=== PATIENT | female | born 1950 | race Caucasian/White ===

== ENCOUNTER 2020-12-31 14:12 | Inpatient (IN) | payer OTHER ==
[~2020-12-31] VITALS: Ht 157.5 cm; Wt 89.4 kg
--- NOTE | 2020-12-31 14:42 | REP ---
INDICATION: DYSPNEA/COUGH COMPARISON: None. TECHNIQUE: Portable AP view of the chest FINDINGS: Diffuse increased pulmonary vasculature and interstitial markings are noted bilaterally with scattered airspace disease, subtle opacities, bibasilar atelectasis, and small pleural effusions (right greater than left). No pneumothorax. Skeletal structures intact. Visualized portions of the cardiac silhouette suggest cardiomegaly with dual lead pacemaker and evidence for prior proximal aortic stenting. IMPRESSION: Findings described above suggest CHF versus multifocal pneumonia. <Electronically signed by Mark Miller > 12/31/20 [id number]
[2020-12-31] MEDS ORDERED: FUROSEMIDE 40MG/4ML VIAL (J1940) IV ONE (14:45)
[2020-12-31 14:53] LABS: BASO # 0.1 10^3/uL (0.0-0.2); BASO % 0.9 % (0.0-1.0); EOS # 0.1 10^3/uL (0.0-0.5); EOS % 0.9 % (0.0-3.0); HEMATOCRIT 32.7 % (36.0-47.0); HEMOGLOBIN 9.4 g/dl (12.0-15.5); LYMPH # 1.7 10^3/uL (1.5-5.0); MEAN CORPUSCULAR HEMOGLOBIN 24.9 pg (27.0-33.0); MEAN CORPUSCULAR HGB CONC 28.7 g/dl (32.0-36.5); MEAN CORPUSCULAR VOLUME 86.5 fl (80.0-96.0); MONO # 0.5 10^3/uL (0.0-0.8); MONO % 5.8 % (2.0-8.0); NEUTROPHILS # 6.3 10^3/uL (1.5-8.5); NEUTROPHILS % 72.4 % (36.0-66.0); PLATELET COUNT, AUTOMATED 401 10^3/uL (150-450); RED BLOOD COUNT 3.78 10^6/uL (4.00-5.40); WHITE BLOOD COUNT 8.7 10^3/uL (4.0-10.0)
[2020-12-31 15:03] LABS: INR 1.18; PROTHROMBIN TIME 15.3 SECONDS (12.5-14.3)
[2020-12-31 15:26] LABS: ALBUMIN 3.2 GM/DL (3.2-5.2); BILIRUBIN,DIRECT 0.7 MG/DL (0.0-0.2); BILIRUBIN,TOTAL 1.7 MG/DL (0.2-1.0); CALCIUM LEVEL 8.9 MG/DL (8.8-10.2); CREATININE FOR GFR 1.87 MG/DL (0.55-1.30); GLOMERULAR FILTRATION RATE 28.4 (>45); MB/CK RELATIVE INDEX 2.41 (< OR =4); POTASSIUM SERUM 3.6 MEQ/L (3.5-5.1); THYROID STIMULATING HORMONE 3.8 uIU/ML (0.358-3.740); TOTAL PROTEIN 6.9 GM/DL (6.4-8.2); TROPONIN I 0.04 NG/ML (< 0.10)
[2020-12-31] MEDS ORDERED: D31000TA2 PO (15:54)
[2020-12-31] MEDS ORDERED: LANTINJ4 SQ (15:54)
[2020-12-31] MEDS ORDERED: FURO40TA2 PO (15:54)
[2020-12-31] MEDS ORDERED: CLOP75TA2 PO (15:54)
[2020-12-31] MEDS ORDERED: ATOR1TAB21 PO (15:54)
[2020-12-31] MEDS ORDERED: DEXTROSE 50% 50 ML SYRINGE IV PRN (16:15)
[2020-12-31] MEDS ORDERED: GLUCAGON INJ 1MG VIAL SC PRN (16:15)
[2020-12-31] MEDS ORDERED: GLUCOSE 4GM CHEW TABLET PO PRN (16:15)
[2020-12-31] MEDS ORDERED: cefTRIAXone SOD 2 GM in D5W MINI-BAG PLUS 50 ML IV ONE (16:20)
[2020-12-31] MEDS ORDERED: LevoFLOXacin IV 500 MG in IV 1 EA IV ONE (17:05)
--- NOTE | 2020-12-31 17:41 | HPEPDOC ---
[facility] Medical History & Physical Date of Admission December 31, 2020 Date of Service: December 31, 2020 Attending Physician: Savanah Joyner MD History and Physical CHIEF COMPLAINT: Increased shortness of breath HISTORY OF PRESENT ILLNESS: Patient is a 70-year-old female with PMH of CAD status post stent placement, DM type II, aortic valve replacement secondary to AV stenosis, history of hypertension, history of rectal cancer status post rectal surgery, history of kidney cancer status post nephrectomy 10/04/20, CHF (type unknown), ? FADI, bowel incontinence 2/2 to rectal surgery, history of atrial fibrillation not on anticoagulation due to recent GI bleed, hyperlipidemia who presented to [facility] emergency room with the chief complaint of increased shortness of breath suddenly today. 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 She complains of worsening lower extremity edema over the past several weeks for which her home Lasix was increased from 40 mg to 60 mg last week by her primary care provider. She's also been experiencing nocturnal dyspnea over the past several weeks along with the lower extremity swelling and worsening short of breath. She complains today of lightheadedness, dizziness, diaphoresis along with Herceptin onset of shortness of breath. She denies a cough, chest pain, fevers, chills, recent illnesses. She has a hospitalization from September of this year where she underwent right nephrectomy and rectal surgery. She follows with multiple specialists across [place] and [facility] including her primary care provider who is in [place], [place], manager mba in [place], [place], her urologist in [place], [place], CT surgeons in [place], [place]. She states she had heart failure secondary to chemotherapy and radiation which treated her kidney cancer. She has an unknown baseline for her creatinine. She does not follow with a defective cigarette slitter as outpatient. Due to worsening shortness of breath, the patient was brought to the emergency room for further evaluation. In route, EMS placed on CPAP due to increased lower extremity swelling and increased shortness of breath. Upon arrival to the emergency room, the patient was in respiratory distress, respiratory rate 3033, pulse [id number], temperature 95.5, blood pressure stable at 140/72. Chest x-ray showed CHF type pattern with questionable multifocal pneumonia. Lactic acid elevated at 4.9. The patient was given ceftriaxone and a dose of doxycycline for questionable sepsis 2/2 to PNA. The patient had elevated BNP 6719, pH on ABG 7.359, CO2 normal, PaO2 in the 70s. The patient was attempted to be taken off of CPAP but this did not help her respiratory distress. She was given 120 mg of IV Lasix with no urinary output. Oseguera catheter was placed. Case was discussed with both pulmonology and nephrology. The patient was ultimately admitted for acute hypoxic respiratory failure secondary to congestive heart failure with exacerbation requiring CPAP and hospitalization, r/o sepsis 2/2 to HCAP/CAP? REVIEW OF SYSTEMS: Neg except mentioned above PAST MEDICAL HISTORY: CAD status post stent placement, aortic valve replacement secondary to AV stenosis, history of hypertension, history of rectal cancer status post rectal s urgery, history of kidney cancer status post nephrectomy 10/04/20, CHF (type unknown), history of atrial fibrillation not on anticoagulation due to recent GI bleed, hyperlipidemia, ? FADI, bowel incontinence 2/2 to rectal surgery, DM type II PAST SURGICAL HISTORY: Pacemaker placement 10/2019 Cardiac stent placement x 3 Right nephrectomy 10/04/2020 AV valve replacement Rectal surgery to 10/04/2020 FAMILY HISTORY: Father: CAD, bladder/colon cancer. at 80 y/o Mother: CAD. at 70 y/o. SOCIAL HISTORY: Prior smoker 1 pack per day for 10 years. Quit in 1982. Denies alcohol or drug use. Follows with multiple specialists including her primary care provider in [place], [place]. Cardiology, urology, CT surgery. Patient is a full code. She is ALLERGIES: Please see below. HOME MEDICATIONS: Please see below. PHYSICAL EXAMINATION: VS: respiratory rate 3033, pulse [id number], temperature 95.5, blood pressure stable at 140/72 CONSTITUTIONAL: pale color, no acute respiratory distress, resting in bed, AAO x 3 EYES: PERRLA, EOM intact HENT, MOUTH: Normocephalic, atraumatic, moist mucous membranes, CPAP mask secured in place NECK: SUPPLE, no JVD, no lymphadenopathy, no carotid bruit CV: sinus tachycardia. S1S2 normal, no murmurs/rubs/gallops RESPIRATORY: Crackles in lower post lung bases, no rales/rhonchi/wheezes GI: BS positive in 4 quadrants, soft, nontender, nondistended, no rebound or guarding, no organomegaly : Deferred MUSCULOSKELETAL: Normal ROM. No cyanosis, clubbing, swelling, joint deformity, + 3pitting lower extremity edema INTEGUMENTARY: Intact, no rashes, no lesions, no erythema NEUROLOGIC: Cranial Nerves II-XII are intact, no focal deficits PSYCHIATRIC: Mood and affect are normal LABORATORY DATA: Please see below IMAGING: CXR: Findings described above suggest CHF versus multifocal pneumonia. ASSESSMENT: 70-year-old female with PMH of CAD status post stent placement, aortic valve replacement secondary to AV stenosis, history of hypertension, history of rectal cancer status post rectal surgery, history of kidney cancer status post nephrectomy 10/04/20, CHF (type unknown), ? FADI, bowel incontinence 2/2 to rectal surgery, history of atrial fibrillation not on anticoagulation due to recent GI bleed, hyperlipidemia admitted for acute hypoxic respiratory failure secondary to CHF with exacerbation requiring CPAP, r/o sepsis 2/2 to HCAP/CAP? PLAN: Acute hypoxic respiratory failure 2/2 to CHF with exacerbation, cannot r/o HCAP, CPAP -ABG above -Currently on CPAP, saturating 95% 45% FiO2 -More comfortable while on CPAP, has not diuresed despite high dose lasix administration -Discussed curbside with pulmonology, will keep on CPAP tonight until diuresis starts -PCU to watch closely, f/u treatment plans for individual issues below CHF with exacerbation, type unknown -Worsening SOB, lower ext edema despite incr lasix dose at home. -BNP >6K, trop x 1 neg- follow up next two sets -S/p daily lasix 60 mg at home, given 120 mg IV lasix in ER with no diuresis -Placing oseguera for critical monitoring, daily wts, 2 gm sodium diet, fluid restriction. -F/u new echocardiogram here -Not on BB, ACEi at home -Discussed case with nephrology here due to hx of nephrectomy, elevated Cr: Starting on lasix 80 mg IV Q6H, diuril 250 mg IV BID, oseguera catheter placed. -Nephrology consulted to help with diuresis -Follows with out of town manager mba, requested most recent records, including latest echo. ROXANNA on ? CKD Stage unknown -Cr 1.8, s/p nephrectomy 09/2020, baseline unknown -Does not follow with kidney specialist but with urologist -Nephrology consulted -Daily labs, monitoring while aggressively diuresing HCAP/CAP, sepsis? -LA elevated, tachycardia, RR incr, CXR: MF PNA -Denies cough, fevers, chills, COVID/resp panel neg -Started on levaquin IV, s/p ceftriaxone and doxy in ER -F/u procalcitonin, blood cultures, sputum culture if obtained CAD s/p stent placement / AV stenosis s/p replacement / PM placement -F/u cardiology records -C/w statin, Plavix, diuresis Hx of rectal cancer s/p rectal surgery 09/2020 -Now has bowel incontinence at times from this -Follow up o/p HLD -Statin ? FADI -Stated to have been told she had this but has not been officially dx with sleep study Kidney cancer s/p chemotherapy, radiation and right nephrectomy 09/2020 -Follows with oncologist in [facility] Hx of atrial fibrillation, chronic -Currently ventricularly paced on ECG, HR 108 -Not on BB or chronic AC due to recent GI bleed Hx of recent GI bleed 10/01 to [facility] -Requested most recent records from [facility] -TEDs, sequentials, avoiding AC DM type II -Resume insulin glargine BID, ISS, FS AC/HS -Consistent carb diet DVT px -Teds, SCD. AC CI. DISPOSITION: Admitted under PCU status with CPAP. Nephrology consulted. Did not officially consult pulmonology but discussed case with Dr. Coreas. Follow up multiple records from [place] and [facility]. Vital Signs Vital Signs Date Time Temp Pulse Resp B/P (MAP) Pulse Ox O2 Delivery O2 Flow Rate FiO2 12/31/20 14:50 111 30 140/74 (96) 95 NIPPV (BIPAP/CPAP) 45 12/31/20 14:15 95.5 Laboratory Data Labs 24H Laboratory Tests 2 12/31/20 14:32: POC pH (Misc Panel) 7.359, POC Base Excess (Misc Panel) -7.0L, POC Saturated Percent O2 (Misc) 94L, POC pO2 (Misc Panel) 74.0L, POC pCO2 (Misc Panel) 33.4L, POC HCO3 (Misc Panel) 18.8L, POC Total CO2 (Misc Panel) 20.0L 12/31/20 14:40: Immature Granulocyte % (Auto) 1.0, Neutrophils (%) (Auto) 72.4H, Lymphocytes (%) (Auto) 19.0L, Monocytes (%) (Auto) 5.8, Eosinophils (%) (Auto) 0.9, Basophils (%) (Auto) 0.9, Neutrophils # (Auto) 6.3, Lymphocytes # (Auto) 1.7, Monocytes # (Auto) 0.5, Eosinophils # (Auto) 0.1, Basophils # (Auto) 0.1, Nucleated Red Blood Cells % (auto) 0.0, Prothrombin Time 15.3H, Prothromb Time International Ratio 1.18, Anion Gap 13, Glomerular Filtration Rate 28.4L, Lactic Acid Level 4.9*H, Calcium Level 8.9, Total Bilirubin 1.7H, Direct Bilirubin 0.7H, Aspartate Amino Transf (AST/SGOT) 103H, Alanine Aminotransferase (ALT/SGPT) 63, Alkaline Phosphatase 163H, Total Creatine Kinase 83, Creatine Kinase MB 2.0, Creatine Ki nase MB Relative Index 2.41, Troponin I 0.04, QJ-Lim-D-Type Natriuretic Peptide 6719H, Total Protein 6.9, Albumin 3.2, Albumin/Globulin Ratio 0.9L, Thyroid Stimulating Hormone (TSH) 3.800H CBC/BMP Laboratory Tests 12/31/20 14:40 Microbiology Microbiology 12/31/20 Blood Culture, Received Pending 12/31/20 Respiratory Virus Panel (PCR) ([facility]) - Final, Complete 12/31/20 Blood Culture, Received Pending Home Medications Scheduled Atorvastatin Calcium (Atorvastatin Calcium) 20 Mg Tablet, 20 MG PO DAILY Cholecalciferol (Vitamin D3) (Vitamin D3) 1,000 Unit Tablet, 1,000 UNITS PO DAILY Clopidogrel Bisulfate (Clopidogrel) 75 Mg Tablet, 75 MG PO DAILY Furosemide (Furosemide) 40 Mg Tablet, 60 MG PO DAILY Insulin Glargine,Hum.rec.anlog (Lantus Solostar) 100 Unit/1 Ml Insuln.pen, 16 UNITS SQ BID Allergies Coded Allergies: Contrast Media (Verified Allergy, Mild, ITCHING/AGITATION/SKIN CRAWLING, 12/31/20) A-FIB/CHADSVASC A-FIB History Current/History of A-Fib/PAF?: Yes Current PO Anticoag Therapy: No Age/Risk Factor Scoring CHADSVASC: CHADSVASC Response (Comments) Value Age Risk Factor Age 65-74 years old 1 Gender Risk Factor Female 1 Hx of CHF Yes 1 Hx of HTN Yes 1 Hx of Stroke/TIA/or VTE No 0 Hx of Diabetes Yes 1 Hx of Vascular Disease No 0 Total 5 Treatment Treatment ordered: NONE Other anticoagulant ordered: hx of GI bleed Reason Anticoagulant not given: Other Other reason anticoagulant not: CI Savanah Joyner MD December 31, 2020 17:41
--- NOTE | 2020-12-31 17:54 | ECGEPIP ---
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
[2020-12-31] MEDS ORDERED: LevoFLOXacin IV 750 MG in IV 1 EA IV SCH (18:00)
[2020-12-31] MEDS: HumaLOG INSULIN (NovoLOG) PER UNIT SC SCH ×2 (19:04→21:00)
[2020-12-31] MEDS: FUROSEMIDE 100MG/10ML VIAL (J1940) IV SCH ×2 (19:05→23:18)
[2020-12-31] MEDS: ATORVASTATIN 20 MG TAB PO SCH (19:36)
[2020-12-31] MEDS ORDERED: HEPARIN SOD (PORCINE) 5000UNITS/ML 1ML VIAL/SYRINGE SQ SCH (21:00)
[2020-12-31] MEDS: CHLOROTHIAZIDE 500 MG VIAL (J1205 PER 1) IV SCH (21:28)
[2020-12-31 21:30] VITALS: BP 111/59
[2020-12-31 22:02] VITALS: BP 98/55
[2020-12-31] MEDS: LEVEMIR (INSULIN DETEMIR) 1 UNITS/0.01ML SQ SCH (22:06)
[2020-12-31] MEDS ORDERED: POTASSIUM CHLORIDE 10 MEQ SR TABLET PO ONE (22:25)
[2021-01-01] VITALS (15 sets, daily range): BP systolic 92–118; BP diastolic 51–60
[2021-01-01] MEDS ORDERED: ACETAMINOPHEN TAB 650MG DOSE (2X325MG) PO PRN (02:40)
[2021-01-01 06:12] LABS: HEMATOCRIT 26.3 % (36.0-47.0); HEMOGLOBIN 7.6 g/dl (12.0-15.5); MEAN CORPUSCULAR HEMOGLOBIN 24.7 pg (27.0-33.0); MEAN CORPUSCULAR HGB CONC 28.9 g/dl (32.0-36.5); MEAN CORPUSCULAR VOLUME 85.4 fl (80.0-96.0); RED BLOOD COUNT 3.08 10^6/uL (4.00-5.40); WHITE BLOOD COUNT 6.4 10^3/uL (4.0-10.0)
[2021-01-01 06:13] LABS: PLATELET COUNT, AUTOMATED 274 10^3/uL (150-450)
[2021-01-01] MEDS: FUROSEMIDE 100MG/10ML VIAL (J1940) IV SCH ×2 (06:20→13:08)
[2021-01-01] MEDS: CHLOROTHIAZIDE 500 MG VIAL (J1205 PER 1) IV SCH (06:21)
[2021-01-01 06:22] LABS: ALBUMIN 2.9 GM/DL (3.2-5.2); BILIRUBIN,TOTAL 0.9 MG/DL (0.2-1.0); CREATININE FOR GFR 1.54 MG/DL (0.55-1.30); GLOMERULAR FILTRATION RATE 35.6 (>45); POTASSIUM SERUM 3.5 MEQ/L (3.5-5.1); TOTAL PROTEIN 5.6 GM/DL (6.4-8.2)
[2021-01-01] MEDS: HumaLOG INSULIN (NovoLOG) PER UNIT SC SCH ×4 (07:30→21:00)
--- NOTE | 2021-01-01 07:40 | REP ---
INDICATION: solitary kidney, ROXANNA/CKD COMPARISON: None TECHNIQUE: Real time carrion scale ultrasound examination using curved array transducer. FINDINGS: Patient is noted to be status post right nephrectomy and the right renal fossa appears normal. The left kidney is normal in appearance without hydronephrosis, nephrolithiasis, cystic or renal mass lesion and measures 10.5 x 5.9 x 6.4 cm. IMPRESSION: 1. Status post right nephrectomy. 2. Normal left kidney. <Electronically signed by Mark Miller > 01/01/21 [id number]
[2021-01-01 08:19] LABS: TROPONIN I 0.32 NG/ML (< 0.10)
[2021-01-01] MEDS: LEVEMIR (INSULIN DETEMIR) 1 UNITS/0.01ML SQ SCH ×2 (08:23→21:00)
[2021-01-01] MEDS: CLOPIDOGREL 75 MG TAB PO SCH (08:28)
[2021-01-01] MEDS: VITAMIN D 1,000 INTERNATIONAL UNITS TABLET PO SCH (08:28)
[2021-01-01] MEDS: ATORVASTATIN 20 MG TAB PO SCH (08:29)
[2021-01-01 08:38] LABS: MAGNESIUM LEVEL 2.5 MG/DL (1.8-2.4); PHOSPHORUS LEVEL 4.1 MG/DL (2.5-4.9)
[2021-01-01] MEDS ORDERED: LevoFLOXacin IV 250 MG in IV 1 EA IV SCH (09:00)
[2021-01-01] MEDS ORDERED: POTASSIUM CHLORIDE 10 MEQ SR TABLET PO ONE ×2 (10:50→17:35)
--- NOTE | 2021-01-01 12:47 | REP ---
INDICATION: pleural effusions. COMPARISON: Comparison is made with yesterday's chest x-ray.. TECHNIQUE: Helical scanning is acquired. 3 mm axial images are generated. Coronal and sagittal MPR and coronal MIP images are generated. FINDINGS: Digital preliminary line up worker radiograph demonstrates cardiomegaly, and aortic valve replacement, bipolar pacemaker, and pleural angle blunting bilaterally. Axial CT images confirm the presence of small bilateral pleural effusions layering posteriorly. There is a very small amount of pericardial fluid. Four-chamber cardiomegaly is observed. Mitral annular calcification pacemaker and aortic valve replacement are noted. On lung window settings, there is diffuse increase in alveolar density consistent with CHF mild alveolar edema. There is discoid atelectasis in both lower lobes and in the right middle lobe. No hilar or mediastinal mass or adenopathy is observed. Visualized upper abdominal structures are unremarkable. IMPRESSION: CHF pattern with bilateral pleural effusions and four-chamber cardiomegaly. Pacemaker and aortic valve replacement. Mild alveolar edema pattern. Bibasilar atelectatic changes. <Electronically signed by Griffin Montana > 01/01/21 [id number]
[2021-01-01 12:52] LABS: TROPONIN I 0.24 NG/ML (< 0.10)
--- NOTE | 2021-01-01 14:22 | IPNPDOC ---
Date Seen The patient was seen on 01/01/21. Progress Note SUBJECTIVE: Off CPAP, transitioned to 4 L NC. Troponins bumped to 0.55, trending down today. Echocardiogram: small pericardial effusion. CT chest: small b/l pleural effusion. ECG: ventricular paced rhythm. Discussed with cardiology. Patient denies chest pain, diaphoresis, n/v/d, fevers, chills. OBJECTIVE: PHYSICAL EXAMINATION: VS: Please see below. CONSTITUTIONAL: pale color, no acute respiratory distress, resting in bed, AAO x 3 EYES: PERRLA, EOM intact HENT, MOUTH: Normocephalic, atraumatic, moist mucous membranes, CPAP mask secured in place NECK: SUPPLE, no JVD, no lymphadenopathy, no carotid bruit CV: sinus tachycardia. S1S2 normal, no murmurs/rubs/gallops RESPIRATORY: Crackles in lower post lung bases, no rales/rhonchi/wheezes GI: BS positive in 4 quadrants, soft, nontender, nondistended, no rebound or guarding, no organomegaly : Deferred MUSCULOSKELETAL: Normal ROM. No cyanosis, clubbing, swelling, joint deformity, + 3pitting lower extremity edema INTEGUMENTARY: Intact, no rashes, no lesions, no erythema NEUROLOGIC: Cranial Nerves II-XII are intact, no focal deficits PSYCHIATRIC: Mood and affect are normal LABORATORY DATA: Please see below IMAGING: Echocardiogram (prelim reading): small pericardial effusion, pleural effusion, MRPatricia F/U OFFICIAL TRANSCRIBED REPORT CT chest: CHF pattern with bilateral pleural effusions and four-chamber cardiomegaly. Pacemaker and aortic valve replacement. Mild alveolar edema pattern. Bibasilar atelectatic changes. CXR: Findings described above suggest CHF versus multifocal pneumonia. ASSESSMENT: 70-year-old female with PMH of CAD status post stent placement, aortic valve replacement secondary to AV stenosis, history of hypertension, history of rectal cancer status post rectal surgery, history of kidney cancer status post nephrectomy 10/04/20, CHF (type unknown), ? FADI, bowel incontinence 2/2 to rectal surgery, history of atrial fibrillation not on anticoagulation due to recent GI bleed, hyperlipidemia admitted for acute hypoxic respiratory failure secondary to CHF with exacerbation requiring CPAP, r/o sepsis 2/2 to HCAP/CAP? PLAN: Acute hypoxic respiratory failure 2/2 to CHF with exacerbation, pleural effusions -Was on CPAP most of 12/31/20, currently saturating well on 4 L NC. Not on home O2 -Low suspicion for HCAP/CAP with low procalcitonin and CT chest not naming pneumonia. ABx stopped -PCU to watch closely, f/u treatment plans for individual issues below Elevated troponins likely 2/2 to ischemic demand, renal dysfunction, CHF -Trop peaked at 0.55, down to 0.23 this afternoon -Denies any chest pain, no events on tele, ECG showed to be ventricularly paced- similar to one on admission -C/w current treatment below, f/u cardiology records. CHF with exacerbation, type unknown with bilateral pleural effusions -Net neg 6.0 L since admission, improved SOB and LE edema b/l -CT chest above -BNP >6K -Trops elevated overnight; however, likely 2/2 to ischemic demand and perhaps r enal dysfunction per cards -Echocardiogram: official report pending, prelim results above -Not on BB, ACEi at home -C/w lasix 80 mg IV Q6H, diuril 250 mg IV BID, oseguera catheter for monitoring. Added IS Q2H while awake -Nephrology consulted to help with diuresis -Follows with out of town service associate, requested most recent records, including latest echo. ROXANNA on ? CKD Stage unknown -Cr 1.8--> 1.54, s/p nephrectomy 09/2020, baseline Cr unknown -Cr improving despite aggressive diuresis -Does not follow with kidney specialist but with urologist -Nephrology following -Daily labs, monitoring while aggressively diuresing Anemia likely acute on chronic (baseline not known), r/o GI bleed -Hx of recent GI bleed 10/01 to [facility] with records from [facility] requested. -has not been on AC this admission at all. -H/H dropped 7.6/26.3 -F/u occult blood, anemia w/u -With cardiac history, tranfusing 2 units PRBC today. -TEDs, sequentials, avoiding AC CAD s/p stent placement / AV stenosis s/p replacement / PM placement -F/u cardiology records -C/w statin, Plavix, diuresis Hx of rectal cancer s/p rectal surgery 09/2020 -Now has bowel incontinence at times from this -Follow up o/p HLD -Statin ? FADI -Stated to have been told she had this but has not been officially dx with sleep study Kidney cancer s/p chemotherapy, radiation and right nephrectomy 09/2020 -Follows with oncologist in [facility] Hx of atrial fibrillation, chronic -Currently ventricularly paced on ECG, HR 108 -Not on BB or chronic AC due to recent GI bleed DM type II -BS controlled - insulin glargine BID, ISS, FS AC/HS -Consistent carb diet DVT px -Teds, SCD. AC CI. DISPOSITION: Improving slowly. Nephrology consulted. Follow up multiple records from [facility] and [facility]. PT/OT VS, I&O, 24H, Fishbone Vital Signs/I&O Vital Signs Date Time Temp Pulse Resp B/P (MAP) Pulse Ox O2 Delivery O2 Flow Rate FiO2 01/01/21 12:00 97.1 95 18 118/60 (79) 99 Nasal Cannula 2.0 12/31/20 20:28 45 I&O- Last 24 Hours up to 6 AM 01/01/21 06:00 Intake Total 65 ml Output Total 4700 ml Balance -4635 ml Laboratory Data 24H LABS Laboratory Tests 2 12/31/20 14:32: POC pH (Misc Panel) 7.359, POC Base Excess (Misc Panel) -7.0L, POC Saturated Percent O2 (Misc) 94L, POC pO2 (Misc Panel) 74.0L, POC pCO2 (Misc Panel) 33.4L, POC HCO3 (Misc Panel) 18.8L, POC Total CO2 (Misc Panel) 20.0L 12/31/20 14:40: Immature Granulocyte % (Auto) 1.0, Neutrophils (%) (Auto) 72.4H, Lymphocytes (%) (Auto) 19.0L, Monocytes (%) (Auto) 5.8, Eosinophils (%) (Auto) 0.9, Basophils (%) (Auto) 0.9, Neutrophils # (Auto) 6.3, Lymphocytes # (Auto) 1.7, Monocytes # (Auto) 0.5, Eosinophils # (Auto) 0.1, Basophils # (Auto) 0.1, Nucleated Red Blood Cells % (auto) 0.0, Prothrombin Time 15.3H, Prothromb Time International Ratio 1.18, Anion Gap 13, Glomerular Filtration Rate 28.4L, Lactic Acid Level 4.9*H, Calcium Level 8.9, Total Bilirubin 1.7H, Direct Bilirubin 0.7H, Aspartate Amino Transf (AST/SGOT) 103H, Alanine Aminotransferase (ALT/SGPT) 63, Alkaline Phosphatase 163H, Total Creatine Kinase 83, Creatine Kinase MB 2.0, Creatine Kinase MB Relative Index 2.41, Troponin I 0.04, ZJ-Ibz-V-Type Natriuretic Peptide 6719H, Total Protein 6.9, Albumin 3.2, Albumin/Globulin Ratio 0.9L, Thyroid Stimulating Hormone (TSH) 3.800H 12/31/20 18:03: Troponin I 0.31#H, Procalcitonin 0.13 12/31/20 18:53: Bedside Glucose (Misc Panel) 128H 12/31/20 22:00: Bedside Glucose (Misc Panel) 197H 12/31/20 22:05: Troponin I 0.55#H 01/01/21 05:33: Nucleated Red Blood Cells % (auto) 0.0, Anion Gap 7L, Glomerular Filtration Rate 35.6L, Calcium Level 9.0, Total Bilirubin 0.9, Aspartate Amino Transf (AST/SGOT) 41H, Alanine Aminotransferase (ALT/SGPT) 45, Alkaline Phosphatase 121H, Total Protein 5.6L, Albumin 2.9L, Albumin/Globulin Ratio 1.1L 01/01/21 07:40: Troponin I 0.32#H, Lactic Acid Level 1.6, Phosphorus Level 4.1, Magnesium Level 2.5H 01/01/21 11:16: Bedside Glucose (Misc Panel) 135H 01/01/21 12:00: Troponin I 0.24#H CBC/BMP Laboratory Tests 12/31/20 14:40 01/01/21 05:33 Microbiology Microbiology 12/31/20 Blood Culture, Received Pending 12/31/20 Respiratory Virus Panel (PCR) ([facility]) - Final, Complete 12/31/20 Blood Culture, Received Pending Savanah Joyner MD January 01, 2021 14:22
[2021-01-01 15:13] LABS: PERCENT SATURATION 7.1 % (13.2-45.0)
[2021-01-01] MEDS ORDERED: ASPI81CH33 PO (15:58)
[2021-01-01 23:08] LABS: HEMATOCRIT 34.7 % (36.0-47.0); HEMOGLOBIN 10.5 g/dl (12.0-15.5)
[2021-01-02] VITALS: BP 108/56
[2021-01-02 04:00] VITALS: BP 100/53
[2021-01-02 06:07] LABS: HEMATOCRIT 33.5 % (36.0-47.0); HEMOGLOBIN 10.1 g/dl (12.0-15.5); MEAN CORPUSCULAR HEMOGLOBIN 25.4 pg (27.0-33.0); MEAN CORPUSCULAR HGB CONC 30.1 g/dl (32.0-36.5); MEAN CORPUSCULAR VOLUME 84.4 fl (80.0-96.0); PLATELET COUNT, AUTOMATED 272 10^3/uL (150-450); RED BLOOD COUNT 3.97 10^6/uL (4.00-5.40); WHITE BLOOD COUNT 6.9 10^3/uL (4.0-10.0)
[2021-01-02 06:26] LABS: CALCIUM LEVEL 8.7 MG/DL (8.8-10.2); CREATININE FOR GFR 1.51 MG/DL (0.55-1.30); GLOMERULAR FILTRATION RATE 36.4 (>45); POTASSIUM SERUM 4.1 MEQ/L (3.5-5.1)
[2021-01-02 06:27] LABS: ALBUMIN 2.9 GM/DL (3.2-5.2); BILIRUBIN,TOTAL 1.2 MG/DL (0.2-1.0); TOTAL PROTEIN 5.7 GM/DL (6.4-8.2)
--- NOTE | 2021-01-02 07:15 | CR ---
CONSULTATION DATE: 01/01/2021 REQUESTING PHYSICIAN: JONI SHEPARD MD CONSULTING PHYSICIAN: DAVE SEXTON DO REASON FOR CONSULTATION: Management of diuretic administration in this patient with CKD, solitary kidney, congestive heart failure. HISTORY OF PRESENT ILLNESS: Ms. Vivi Dick is previously unknown to me. She is a 70-year-old female who has come to [facility] for her very first visit here. She has a past medical history of significant heart disease including coronary artery disease status post stenting, aortic valve replacement with a history of aortic valve stenosis, atrial fibrillation not on anticoagulation (due to recent GI bleed) and also history of rectal cancer status post rectal surgery and history of renal cancer status post right nephrectomy in September 2020. The patient reports a history of congestive heart failure and follows up with cardiology and also reports follow-up with urology but does not see a material manager. Her other past medical history is listed below. The patient does not know her baseline renal function since she has solitary functioning left kidney. She states that her diuretic is managed by her primary care, Dr. Del Cid in [place], [place]. Patient states that she was on Lasix 40 mg daily, however over the past couple of weeks she has had increasing leg edema and has become progressively more short of breath and she also reported worsening dyspnea with exertion along with nocturnal dyspnea. She contacted her primary care provider who increased her Lasix from 40 mg daily to 60 mg daily. However, the patient had no relief in her symptoms. She was coming to [place] to see her professional system administrator and she decided not to take her Lasix in view of travel and not wanting to have to use the bathroom. However, she developed sudden increased shortness of breath and ended up in the Emergency Room instead. In the Emergency Room, the patient was noted to be in respiratory distress, tachycardic and hypoxic. She was placed on a CPAP. Chest x-ray showed a CHF pattern. Patient was noted to have lactic acidosis as well. Laboratory studies revealed a BNP of 6700. The Hospitalist contacted me yesterday evening and discussed the case and I advised that the patient be started on Lasix 80 mg IV q. 6 hourly along with Diuril 250 mg IV q. 12 hourly. The patient has had vigorous diuresis overnight and has already made 6 liters of urine in about a 12 hour period and she reports significant improvement in her shortness of breath and her leg swelling, and laboratory studies also reveal improving kidney function. PAST MEDICAL HISTORY: 1. Solitary functioning left kidney. Baseline creatinine unknown. 2. Chronic kidney disease. 3. Coronary artery disease status post stenting. 4. Aortic valve replacement secondary to aortic valve stenosis. 5. Hypertension. 6. Atrial fibrillation. 7. Recurrent anemia. 8. GI bleed. 9. Rectal cancer status post rectal surgery. 10.History of renal cancer status post right nephrectomy. 11.Congestive heart failure. 12.Iron deficiency. 13.Atrial fibrillation. 14.Dyslipidemia. 15.Questionable sleep apnea. 16.Type 2 diabetes mellitus. 17.Bowel incontinence. PAST SURGICAL HISTORY: Pacemaker placement, coronary stent x3, right nephrectomy in September 2020, aortic valve replacement, rectal surgery in September 2020. FAMILY HISTORY: Father with coronary artery disease and bladder and colon cancer. Mother with coronary artery disease. SOCIAL HISTORY: She is an ex-smoker, quit in 1982. Denies alcohol or drug use. She is and lives at home with . ALLERGIES: Contrast media. HOME MEDICATIONS: 1. Lipitor. 2. Vitamin D3. 3. Plavix. 4. Lasix 60 mg p.o. daily. 5. Insulin. REVIEW OF SYSTEMS: Constitutional: She reports no fevers or chills. She reports fatigue. Eyes: She denies visual changes or tearing. ENT: She denies rhinorrhea or epistaxis. Cardiac: She reports a history of leg swelling, dyspnea on exertion, coronary artery disease, congestive heart failure and aortic valve replacement, atrial fibrillation. Respiratory: She reports shortness of breath. She is an ex-smoker. She denies hemoptysis. Gastrointestinal: She reports a history of rectal cancer, rectal bleed. She denies nausea or vomiting. She reports bowel incontinence. Genitourinary: She denies any hematuria or dysuria. She has a history of solitary functioning kidney. Endocrine: She reports insulin dependent diabetes mellitus and obesity. Musculoskeletal: She denies any acute myalgias or arthralgias. She reports prominent leg swelling. Hematologic: She reports anemia and blood transfusions and she reports she has been discontinued off of anticoagulation due to bleed. Neurologic: She denies seizure or syncope. Psychiatric: She denies anxiety or depression. Skin: She denies any new rashes or ulcers. The remainder of review of systems is negative or as per HPI. PHYSICAL EXAMINATION: VITAL SIGNS: Temperature 98.7, pulse 87, respiratory rate 20, blood pressure 105/57, saturating 92 to 95% on room air. INTAKE AND OUTPUT: Intake yesterday was not fully recorded. Urine output yesterday was 2.2 liters, urine output today is already 6 liters, weight on the bed scale is 95.6 kg. GENERAL: The patient is seen sitting in a recliner with her legs elevated with her family members present at the bedside. She is awake, alert and oriented x3 and in no apparent distress. HEENT: Extraocular muscles are intact. There is conjunctival pallor. Tongue is moist. NECK: Supple. Jugular veins are not elevated while she is sitting upright. She is seen on nasal cannula at the time of my visit. HEART: Heart sounds are regular, S1 and S2. There is 2+ leg edema. The patient reports it is improved from earlier. RESPIRATORY: Symmetric air entry without crackles or rales. There are diminished breath sounds however at the bases. She is comfortable and speaking in full sentences without any accessory muscle use nor tachypnea. ABDOMEN: Soft, obese and nontender. GENITOURINARY: Indwelling Martell catheter draining clear yellow urine. EXTREMITIES: 2+ leg edema. NEUROLOGIC: She is oriented x3, interactive at baseline mentation. SKIN: Pallor but no rashes. LABORATORY DATA: Hemoglobin 7.6, platelets are 274,000, white count 6.4, sodium 142, potassium 3.5, bicarbonate 29, BUN 35, creatinine 1.8 yesterday on admission and 1.5 today. Lactic acid 4.9 yesterday on admission and 1.6 today. Magnesium 2.5, transferrin saturation 7%, iron 22, ferritin 46. Troponin 0.2, albumin 2.9. Microbiology: Stool occult blood pending. Blood cultures: No growth 24 hours x2 sets. IMAGING: CT of the chest done at 10 o'clock this morning: CHF pattern with bilateral pleural effusions and cardiomegaly, pacemaker and aortic valve replacement. Renal ultrasound done yesterday: Normal left kidney 10.5 cm. INPATIENT MEDICATIONS: Tylenol p.r.n., Levaquin 750 mg IV x1 dose, Lipitor 20 mg p.o. daily, Chlorthiazide 250 mg IV q. 12 hourly x2 doses, Plavix 75 mg p.o. daily, Lasix 80 mg IV q. 6 hourly x4 doses, insulin, potassium 40 mEq p.o. x3 doses, vitamin D 1000 units p.o. daily. PROBLEMS: 1. Acute on chronic congestive heart failure decompensation with fluid overload. Patient has a history of congestive heart failure but the type is unknown as it is her first admission at [facility]. Echocardiogram is pending. She was admitted with acute hypoxic respiratory failure, BNP of 6700 and lung imaging was consistent with CHF pattern and pleural effusions, and the patient had considerable edema on exam. She was diuresed with IV Lasix and Diuril. She has already made about 8 liters of urine within a day and a half and I am going to hold further diuretic this evening. 2. Acute hypoxic respiratory failure secondary to decompensated congestive heart failure. Patient was initially requiring CPAP, however at the time of my visit she was on nasal cannula and transitioning to room air. She has been vigorously diuresed. After the Hospitalist contacted me yesterday evening, I recommended Lasix along with Diuril and the patient has diuresed very well and I am going to hold diuretics now as she has already made 8 liters of urine in a day and a half. Her volume status is much improved and I expect she will be on room air by this evening. 3. CKD. Her baseline renal function is unknown. She is status post right nephrectomy in September 2020 and now has a solitary functioning left kidney. Her admission creatinine was 1.8 and after diuresis her creatinine today has come down to 1.5. We will see where her creatinine plateaus. She should follow-up with nephrology as an outpatient locally where she lives. Her renal imaging was negative for any sort of obstruction. 4. Anemia, patient reports a history of recurrent rectal bleeds and she reports she was recently transfused this year and she came in now with a hemoglobin that has dropped down to 7.6 despite diuresis and correction of hemodilution. She is getting 2 units of packed red blood cells today. I ordered iron stores which shows severe iron deficiency and I am going to give her Injectafer for correction of her iron deficiency. She reports she used to be on Eliquis for atrial fibrillation but it is held because of recurrent rectal bleeding. Thank you for involving me in the care of Ms. Dick, I would be happy to follow her along with you.
[2021-01-02] MEDS: HumaLOG INSULIN (NovoLOG) PER UNIT SC SCH ×4 (07:30→21:00)
[2021-01-02 07:40] VITALS: BP 106/58
[2021-01-02] MEDS: LEVEMIR (INSULIN DETEMIR) 1 UNITS/0.01ML SQ SCH ×2 (07:44→21:00)
[2021-01-02 08:07] LABS: TROPONIN I 0.15 NG/ML (< 0.10)
[2021-01-02] MEDS: VITAMIN D 1,000 INTERNATIONAL UNITS TABLET PO SCH (08:28)
[2021-01-02] MEDS: ATORVASTATIN 20 MG TAB PO SCH (08:28)
[2021-01-02] MEDS: CLOPIDOGREL 75 MG TAB PO SCH (08:28)
[2021-01-02 12:02] VITALS: BP 116/58
[2021-01-02] MEDS: FUROSEMIDE 100MG/10ML VIAL (J1940) IV SCH ×2 (12:54→21:11)
[2021-01-02] MEDS ORDERED: FERRIC CARBOXYMALTOSE INJ 750 MG, VIAL MATE ADAPTER 1 EACH in NS 250 ML IV ONE (16:00)
[2021-01-02] MEDS ORDERED: FERRIC CARBOXYMALTOSE INJ 750 MG in NS 250 ML IV ONE (16:00)
--- NOTE | 2021-01-02 16:45 | ECGEPIP ---
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 Slower rate and slightly different precordial lead placement but no significant c change from 12/31/20 Electronically Signed on 01-02-2021 16:45:23 EDT by Marty Sofia
--- NOTE | 2021-01-02 17:26 | IPNPDOC ---
Date Seen The patient was seen on 01/02/21. Progress Note SUBJECTIVE: On RA, diuresed > 7 L since admission. Cr and trop trending down. Patient denies chest pain, diaphoresis, n/v/d, fevers, chills. OBJECTIVE: PHYSICAL EXAMINATION: VS: Please see below. CONSTITUTIONAL: NAD, sitting up in chair, AAO x 3 EYES: PERRLA, EOM intact HENT, MOUTH: Normocephalic, atraumatic, moist mucous membranes NECK: SUPPLE, no JVD, no lymphadenopathy, no carotid bruit CV: sinus tachycardia. S1S2 normal, no murmurs/rubs/gallops RESPIRATORY: Crackles in lower post lung bases improving- mild, no rales/rhonchi/wheezes GI: BS positive in 4 quadrants, soft, nontender, nondistended, no rebound or guarding, no organomegaly : Deferred MUSCULOSKELETAL: Normal ROM. No cyanosis, clubbing, swelling, joint deformity, + 3 pitting lower extremity edema b/l INTEGUMENTARY: Intact, no rashes, no lesions, no erythema NEUROLOGIC: Cranial Nerves II-XII are intact, no focal deficits PSYCHIATRIC: Mood and affect are normal LABORATORY DATA: Please see below IMAGING: Echocardiogram (prelim reading): small pericardial effusion, pleural effusion, MR. F/U OFFICIAL TRANSCRIBED REPORT CT chest: CHF pattern with bilateral pleural effusions and four-chamber cardiomegaly. Pacemaker and aortic valve replacement. Mild alveolar edema pattern. Bibasilar atelectatic changes. CXR: Findings described above suggest CHF versus multifocal pneumonia. ASSESSMENT: 70-year-old female with PMH of CAD status post stent placement, aortic valve replacement secondary to AV stenosis, history of hypertension, history of rectal cancer status post rectal surgery, history of kidney cancer status post nephrectomy 10/04/20, CHF (type unknown), ? FADI, bowel incontinence 2/2 to rectal surgery, history of atrial fibrillation not on anticoagulation due to recent GI bleed, hyperlipidemia admitted for acute hypoxic respiratory failure secondary to CHF with exacerbation requiring CPAP, r/o sepsis 2/2 to HCAP/CAP? PLAN: Acute hypoxic respiratory failure 2/2 to acute on chronic HFpEF with exacerbation, pleural effusions- improved -Currently saturating well on RA -Low suspicion for HCAP/CAP with low procalcitonin and CT chest not naming pneumonia. ABx stopped -PCU to watch closely, f/u treatment plans for individual issues below Elevated troponins likely 2/2 to ischemic demand, renal dysfunction, acute on chronic HFpEF with exacerbation -Trop peaked at 0.55 and trending down to 0.15 -Denies any chest pain, no events on tele, ECG showed to be ventricularly paced- similar to one on admission -Last cardiology note from Cardiology in chart from 11/04/20- no changes were made at that time to medications. -Discussed with Dr. Sofia, our er physician. -C/w current treatment below Acute on chronic HFpEF with exacerbation, type unknown with bilateral pleural effusions ->7 L neg since admission, improved SOB and LE edema b/l -CT chest above -BNP >6K -Trops trending down -Per obtained records, last echo from [facility] from 11/10/19: EF 55-60%, severe hypokinesis of infero-post wall, no paravalvular or valvular AV regurg. See rest in chart. -New echocardiogram done this admission: official report pending, prelim results above -Not on BB, ACEi at home -C/w lasix 60 mg IV Q8H, oseguera catheter for monitoring, IS Q2H while awake -Nephrology consulted to help with diuresis -Cardiology records in chart Acute kidney injury likely 2/2 to CHF, o/p medications/diuretics -Cr 1.51, further improved -Per records, baseline appears to be normal with last labs seen Cr 1.1 -S/p nephrectomy 09/2020 -Cr improving despite aggressive diuresis -Does not follow with kidney specialist but with urologist -Nephrology following -Daily labs, monitoring while aggressively diuresing Anemia likely acute on chronic (baseline not known) -S/p 2 units PRBC, H/H 10.. Baseline H/H from obtained notes. -Occult blood neg -Hx of recent GI bleed 10/01 to nona with records from [facility] requested. -has not been on AC this admission at all. -Daily CBC, TEDs, sequentials CAD s/p stent placement / hx of severe s/p TAVR / PM placement -F/u cardiology records -C/w ASA, statin, Plavix, diuresis Hx of rectal cancer s/p rectal surgery 09/2020 -Now has bowel incontinence at times from this -Follow up o/p HLD -Statin ? FADI -Stated to have been told she had this but has not been officially dx with sleep study Kidney cancer s/p chemotherapy, radiation and right nephrectomy 09/2020 -Follows with oncologist in [facility] Hx of atrial fibrillation, chronic -Currently ventricularly paced on ECG, HR stable -Not on BB or chronic AC due to recent GI bleed DM type II -BS controlled - insulin glargine BID, ISS, FS AC/HS -Consistent carb diet DVT px -Teds, SCD. DISPOSITION: Improving slowly. Nephrology consulted. cleared by PT/OT to return home when medically improved. VS, I&O, 24H, Fishbone Vital Signs/I&O Vital Signs Date Time Temp Pulse Resp B/P (MAP) Pulse Ox O2 Delivery O2 Flow Rate FiO2 01/02/21 12:02 97.9 95 18 116/58 (77) 95 Room Air 01/01/21 12:00 2.0 12/31/20 20:28 45 I&O- Last 24 Hours up to 6 AM 01/02/21 06:00 Intake Total 2520 ml Output Total 4550 ml Balance -2030 ml Laboratory Data 24H LABS Laboratory Tests 2 01/01/21 20:39: Bedside Glucose (Misc Panel) 158H 01/02/21 05:51: Nucleated Red Blood Cells % (auto) 0.0, Anion Gap 4L, Glomerular Filtration Rate 36.4L, Calcium Level 8.7L, Total Bilirubin 1.2H, Aspartate Amino Transf (AST/SGOT) 21, Alanine Aminotransferase (ALT/SGPT) 32, Alkaline Phosphatase 112, Troponin I 0.15#H, Total Protein 5.7L, Albumin 2.9L, Albumin/Globulin Ratio 1.0L 01/02/21 11:44: Bedside Glucose (Misc Panel) 155H 01/02/21 16:16: Bedside Glucose (Misc Panel) 177H CBC/BMP Laboratory Tests 01/01/21 22:59 01/02/21 05:51 Microbiology Microbiology 01/01/21 Stool Occult Blood ([facility]) - Final, Complete 12/31/20 Blood Culture - Preliminary, Resulted No Growth after 48 hours. All Specime... 12/31/20 Respiratory Virus Panel (PCR) ([facility]) - Final, Complete 12/31/20 Blood Culture - Preliminary, Resulted No Growth after 48 hours. All Specime... Savanah Joyner MD January 02, 2021 17:26
[2021-01-02 20:00] VITALS: BP 110/62
[2021-01-03 04:00] VITALS: BP 114/56
[2021-01-03] MEDS: FUROSEMIDE 100MG/10ML VIAL (J1940) IV SCH ×2 (05:14→13:23)
[2021-01-03 05:21] LABS: HEMATOCRIT 33.1 % (36.0-47.0); MEAN CORPUSCULAR HEMOGLOBIN 25.6 pg (27.0-33.0); MEAN CORPUSCULAR HGB CONC 30.2 g/dl (32.0-36.5); MEAN CORPUSCULAR VOLUME 84.9 fl (80.0-96.0); PLATELET COUNT, AUTOMATED 284 10^3/uL (150-450); WHITE BLOOD COUNT 6.6 10^3/uL (4.0-10.0)
[2021-01-03 05:49] LABS: ALBUMIN 2.8 GM/DL (3.2-5.2); BILIRUBIN,TOTAL 0.8 MG/DL (0.2-1.0); CALCIUM LEVEL 8.5 MG/DL (8.8-10.2); CREATININE FOR GFR 1.61 MG/DL (0.55-1.30); GLOMERULAR FILTRATION RATE 33.8 (>45); POTASSIUM SERUM 3.7 MEQ/L (3.5-5.1); TOTAL PROTEIN 5.7 GM/DL (6.4-8.2)
[2021-01-03 08:00] VITALS: BP 114/58
[2021-01-03] MEDS: ATORVASTATIN 20 MG TAB PO SCH (10:20)
[2021-01-03] MEDS: VITAMIN D 1,000 INTERNATIONAL UNITS TABLET PO SCH (10:21)
[2021-01-03] MEDS: ASPIRIN 81MG ENTERIC TABLET PO SCH (10:21)
[2021-01-03] MEDS: HumaLOG INSULIN (NovoLOG) PER UNIT SC SCH ×4 (10:21→21:00)
[2021-01-03] MEDS: CLOPIDOGREL 75 MG TAB PO SCH (10:21)
[2021-01-03] MEDS: LEVEMIR (INSULIN DETEMIR) 1 UNITS/0.01ML SQ SCH ×2 (10:22→22:02)
[2021-01-03 12:00] VITALS: BP 108/52
[2021-01-03] MEDS: SPIRONOLACTONE 25 MG TAB PO SCH (13:22)
--- NOTE | 2021-01-03 13:28 | IPN ---
INPATIENT PROGRESS NOTE DATE: 01/02/2021 SUBJECTIVE: Ms. Dick is seen and examined this morning at the bedside sitting out of bed in a recliner with legs elevated. She reports she feels much better since she was admitted. She reports her shortness of breath has significantly improved. She has had excellent diuresis, but her leg edema persists. She has come off of supplemental oxygen and is on room air now. I discussed with her regarding her chronic kidney disease. PHYSICAL EXAMINATION: Vital signs: Temperature 97.9, pulse 95, respiratory rate 18, blood pressure 116/58, saturating 95-96% on room air. Intake yesterday was 2 liters. Urine output yesterday was 6.3 liters. Weight on the bed scale today is 93 kg which is significantly down from admission. General: Patient is seen sitting in a recliner with the legs elevated, elderly and obese female awake, alert, oriented times 3 and in no apparent distress. HEENT: Extraocular muscles are intact. Tongue is moist. Neck: Supple. Jugular veins are still elevated. Heart sounds: Regular S1 and S2. Lungs: She is seen comfortable on room air. Symmetric air entry which is diminished at the bases. Abdomen: Soft, obese and nontender. There are some healed laparoscopic incisions. Genitourinary: Indwelling Martell catheter draining clear yellow urine. Extremities: Ongoing 2+ leg edema. Neurologic: She is oriented times 3, interactive and at baseline mentation. Skin: The pallor that was there previously has improved. LABORATORY DATA: Sodium 142, potassium 4.1, bicarbonate 32, BUN 32, creatinine 1.5, GFR 36. Transferrin saturation 7%, iron 22. Troponin 0.15. Hemoglobin 10.1. Stool occult blood returned back negative. Blood cultures no growth 48 hours times 2 sets. IMAGING STUDIES: Chest CT done yesterday shows CHF pattern with bilateral pleural effusions and cardiomegaly. INPATIENT MEDICATIONS: I decreased her Lasix to 60 mg q8h. She received a dose of Injectafer 750 mg I.V. times 1 today. Remainder of medications are all unchanged as compared to yesterday. PROBLEMS/PLAN: 1. Acute on chronic decompensation diastolic congestive heart failure: Preliminary results of echocardiogram show left ventricular ejection fraction of 55%; official report is pending. She has diuresed spectacularly, has already made more than 8 liters of urine since admission and she is no longer requiring supplemental oxygen. She is still considerably hypervolemic on exam and I am going to continue her on I.V. Lasix, but I did decrease the dose to 60 mg q8h. 2. Acute kidney injury superimposed most likely on CKD stage 3B: I have to review her prior labs to see what her new baseline creatinine has been since she had a nephrectomy done in September of this year. Once she is well diuresed we will have a better idea of what her new baseline renal function is and current acute kidney injury is secondary to cardiorenal syndrome and fluid overload and renal function is improving with aggressive diuresis. 3. Iron deficiency anemia: Patient has received 2 units of packed red blood cells. Her FOBT was negative. She is severely iron deficient. I have written for Injectafer 750 mg I.V. times 1 dose and there is no need for any erythropoietin stimulating agent at this time. She should take a maintenance oral iron supplement after she has received the Injectafer and she will need to be set up for a second dose of Injectafer in the outpatient setting. 4. (cut out) cancer: Status post right nephrectomy in September of 2020. She follows with urology and oncology. I advised her that she should set up with a local tube man in her area as well given her solitary functioning kidney, congestive heart failure and chronic kidney disease. 5. Status post acute hypoxic respiratory failure secondary to decompensated congestive heart failure with bilateral pleural effusions: Patient has improved very well with aggressive diuresis and she is now saturating well on room air. Continue I.V. Lasix at this time as there is still significant fluid overload on exam.
[2021-01-03 14:18] LABS: MAGNESIUM LEVEL 2.3 MG/DL (1.8-2.4)
--- NOTE | 2021-01-03 14:48 | IPNPDOC ---
Date Seen The patient was seen on 01/03/21. Progress Note SUBJECTIVE: Diuresing well still, Cr bumped some but still fluid overloaded. Spironolactone added. Neg 9.0 L since admission. Feels she continue to improve. Patient denies chest pain, incr SOB, n/v/d, fevers, chills. OBJECTIVE: PHYSICAL EXAMINATION: VS: Please see below. CONSTITUTIONAL: NAD, sitting up in chair, AAO x 3 EYES: PERRLA, EOM intact HENT, MOUTH: Normocephalic, atraumatic, moist mucous membranes NECK: SUPPLE, no JVD, no lymphadenopathy, no carotid bruit CV: sinus tachycardia. S1S2 normal, no murmurs/rubs/gallops RESPIRATORY: No longer has crackles in lower post lung bases, no rales/rhonchi/wheezes GI: BS positive in 4 quadrants, soft, nontender, nondistended, no rebound or guarding, no organomegaly : Deferred MUSCULOSKELETAL: Normal ROM. No cyanosis, clubbing, swelling, joint deformity, + 2 pitting lower extremity edema b/l INTEGUMENTARY: Intact, no rashes, no lesions, no erythema NEUROLOGIC: Cranial Nerves II-XII are intact, no focal deficits PSYCHIATRIC: Mood and affect are normal LABORATORY DATA: Please see below IMAGING: Echocardiogram 01/01/21: small pericardial effusion, pleural effusion, MR F/u official reading, pending CT chest: CHF pattern with bilateral pleural effusions and four-chamber cardiomegaly. Pacemaker and aortic valve replacement. Mild alveolar edema pattern. Bibasilar atelectatic changes. CXR: Findings described above suggest CHF versus multifocal pneumonia. ASSESSMENT: 70-year-old female with PMH of CAD status post stent placement, aortic valve replacement secondary to AV stenosis, history of hypertension, history of rectal cancer status post rectal surgery, history of kidney cancer status post nephrectomy 10/04/20, CHF (type unknown), ? FADI, bowel incontinence 2/2 to rectal surgery, history of atrial fibrillation not on anticoagulation due to recent GI bleed, hyperlipidemia admitted for acute hypoxic respiratory failure secondary to CHF with exacerbation requiring CPAP, r/o sepsis 2/2 to HCAP/CAP? PLAN: Acute on chronic HFpEF with exacerbation, type unknown with bilateral pleural effusions ->9 L neg since admission, improved SOB and LE edema b/l -CT chest above -BNP >6K -Trops now neg -Per obtained records, last echo from [facility] from 11/10[facility]: EF 55-60%, severe hypokinesis of infero-post wall, no paravalvular or valvular AV regurg. See rest in chart. -New echocardiogram done this admission: official report pending, prelim results above -Not on BB, ACEi at home -C/w lasix 60 mg IV Q8H, spironolactone, oseguera catheter for monitoring, IS Q2H while awake -Nephrology consulted to help with diuresis -Cardiology records in chart Acute kidney injury likely 2/2 to CHF, o/p medications/diuretics -Cr slightly incr to 1.6 -Per records, baseline appears to be normal with last labs seen Cr 1.1 -S/p nephrectomy 09/2020 -Cr improving despite aggressive diuresis -Does not follow with kidney specialist but with urologist -Nephrology following -Daily labs, monitoring while aggressively diuresing Acute on chronic ODIN anemia likely acute on chronic -S/p 2 units PRBC 01/01/21, H/H 10.0. Baseline H/H from obtained notes. -Occult blood neg -Hx of recent GI bleed 10/01 to [facility] with records from [facility] requested. -has not been on AC this admission at all. -Given dose of Injectafer, started on ferrous sulfate BID -Daily CBC, TEDs, sequentials CAD s/p stent placement / hx of severe s/p TAVR / PM placement -Cardiology records in chart -C/w ASA, statin, Plavix, diuretics Hx of rectal cancer s/p rectal surgery 09/2020 -Now has bowel incontinence at times from this -Follow up o/p HLD -Statin ? FADI -Stated to have been told she had this but has not been officially dx with sleep study Kidney cancer s/p chemotherapy, radiation and right nephrectomy 09/2020 -Follows with oncologist in [facility] Hx of atrial fibrillation, chronic -Currently ventricularly paced on ECG, HR stable -Not on BB or chronic AC due to recent GI bleed DM type II -BS controlled -Insulin glargine BID, ISS, FS AC/HS -Consistent carb diet DVT px -Teds, SCD. Resolved: Acute hypoxic respiratory failure 2/2 to acute on chronic HFpEF with exacerbati on, pleural effusions Elevated troponins likely 2/2 to ischemic demand, renal dysfunction, acute on chronic HFpEF DISPOSITION: Improving slowly. Nephrology following. Cleared by PT/OT to return home when medically improved. VS, I&O, 24H, Fishbone Vital Signs/I&O Vital Signs Date Time Temp Pulse Resp B/P (MAP) Pulse Ox O2 Delivery O2 Flow Rate FiO2 01/03/21 12:00 97.6 83 18 108/52 (70) 93 Room Air 01/01/21 12:00 2.0 12/31/20 20:28 45 I&O- Last 24 Hours up to 6 AM 01/03/21 05:59 Intake Total 1345 ml Output Total 3825 ml Balance -2480 ml Laboratory Data 24H LABS Laboratory Tests 2 01/02/21 16:16: Bedside Glucose (Misc Panel) 177H 01/02/21 21:01: Bedside Glucose (Misc Panel) 143H 01/03/21 04:51: Nucleated Red Blood Cells % (auto) 0.0, Anion Gap 7L, Glomerular Filtration Rate 33.8L, Calcium Level 8.5L, Magnesium Level 2.3, Total Bilirubin 0.8, Aspartate Amino Transf (AST/SGOT) 13, Alanine Aminotransferase (ALT/SGPT) 23, Alkaline Phosphatase 103, Troponin I 0.09#, Total Protein 5.7L, Albumin 2.8L, Albumin/Globulin Ratio 1.0L 01/03/21 12:34: Bedside Glucose (Misc Panel) 137H CBC/BMP Laboratory Tests 01/03/21 04:51 Microbiology Microbiology 01/01/21 Stool Occult Blood ([facility]) - Final, Complete 12/31/20 Blood Culture - Preliminary, Resulted No Growth after 48 hours. All Specime... 12/31/20 Respiratory Virus Panel (PCR) ([facility]) - Final, Complete 12/31/20 Blood Culture - Preliminary, Resulted No Growth after 48 hours. All Specime... Savanah Joyner MD January 03, 2021 14:48
[2021-01-03] MEDS: FERROUS SULFATE 325MG TAB PO SCH ×2 (15:15→22:02)
--- NOTE | 2021-01-03 15:23 | IPN ---
PROGRESS NOTE DATE: 01/03/2021 SUBJECTIVE: Ms. Trinidad is seen and examined this morning at the bedside. She is sitting out of bed to the recliner. She reports she was up and had washed up, moved around, and had no breathlessness with activities. She reports her leg edema has significantly improved. She offers no complaints. She had an intravenous (IV) iron infusion yesterday without any issues. She remains on room air. VITAL SIGNS: Temperature 97.6, pulse 83, respiratory rate 18, blood pressure 108/52, saturating 93% on room air. Intake yesterday was 1440. Urine output yesterday was 3 liters. Weight in the bed scale today is 91.1 kg. GENERAL: Patient is seen awake, alert, oriented, comfortable, sitting in the recliner with the legs elevated. Extraocular muscles are intact. Tongue is moist. Neck is supple. Jugular veins were not elevated while she was sitting upright. HEART: Sounds are regular, S1, S2. LUNGS: Show symmetric air entry with improved aeration. No crackle or rale. ABDOMEN: Soft, obese, and nontender. There is no more abdominal flank edema. GENITOURINARY: Shows indwelling Martell catheter. EXTREMITIES: There is 1+ edema in the left lower extremity and only trace edema in the right leg. NEUROLOGIC: She is oriented times three, interactive, at baseline mentation. LABORATORY DATA: Sodium 142, potassium 3.7, bicarbonate 30, BUN 31, creatinine 1.6. Troponin 0.09. Albumin 2.8. Hemoglobin 10.0, platelets 284. INPATIENT MEDICATIONS: Reviewed by myself. I started her on spironolactone 25 mg by mouth daily. She received Injectafer 750 mg IV times one dose yesterday evening. She continues on Lasix 60 mg IV every 8 hours. No other medication changes are noted. PROBLEMS: 1. Acute on chronic decompensated diastolic congestive heart failure. Preliminary echocardiogram results showed left ventricular ejection fraction of 55%. Official report is pending. She has diuresed very well. I feel that we can switch her over to oral diuretic regimen by tomorrow. Her respiratory exam and leg exam are much improved over the past couple of days. I will continue IV Lasix for day, and I also started her on spironolactone 25 mg once daily. 2. Acute kidney injury superimposed on chronic kidney disease (CKD). Exact baseline renal function is n ot known. She had total nephrectomy done in September of this year, and she has been hypervolemic over the spring. Once she is well diuresed and on an oral diuretic regimen, we will have a better idea of what her new baseline renal function is. Her current acute kidney injury was secondary to cardiorenal syndrome and has improved with aggressive diuresis. 3. Hypokalemia. I am starting her on spironolactone 25 mg by mouth daily. 4. Hypomagnesemia. Given her vigorous diuresis, I am going to check a magnesium level as well to see if she needs magnesium supplementation. 5. Iron deficiency anemia. She has received 2 units packed red blood cells on this admission. Her fecal occult blood test (FOBT) was negative. She is severely iron deficient. She received Injectafer 750 mg IV times one dose yesterday. She needs to take all maintenance oral iron supplement, and as an outpatient she can get set up for a second dose of Injectafer. 6. History of renal cancer, status post right nephrectomy in September 2020. She follows up with urology and oncology. I have advised her to set up with a local community pharmacist in her area given solitary functioning kidney congestive heart failure, and chronic kidney disease.
[2021-01-03 16:00] VITALS: BP 115/55
[2021-01-03] MEDS: TORSEMIDE 20 MG TAB PO SCH (18:08)
[2021-01-04] VITALS: BP 112/57
[2021-01-04 05:08] LABS: HEMATOCRIT 34.6 % (36.0-47.0); HEMOGLOBIN 10.3 g/dl (12.0-15.5); MEAN CORPUSCULAR HEMOGLOBIN 25.3 pg (27.0-33.0); MEAN CORPUSCULAR HGB CONC 29.8 g/dl (32.0-36.5); PLATELET COUNT, AUTOMATED 288 10^3/uL (150-450); RED BLOOD COUNT 4.07 10^6/uL (4.00-5.40); WHITE BLOOD COUNT 6.6 10^3/uL (4.0-10.0)
[2021-01-04 05:40] LABS: ALBUMIN 2.8 GM/DL (3.2-5.2); BILIRUBIN,TOTAL 0.7 MG/DL (0.2-1.0); CALCIUM LEVEL 8.5 MG/DL (8.8-10.2); CREATININE FOR GFR 1.35 MG/DL (0.55-1.30); GLOMERULAR FILTRATION RATE 41.4 (>45); POTASSIUM SERUM 3.4 MEQ/L (3.5-5.1); TOTAL PROTEIN 6.1 GM/DL (6.4-8.2)
[2021-01-04] MEDS: HumaLOG INSULIN (NovoLOG) PER UNIT SC SCH ×4 (07:30→20:57)
[2021-01-04 08:00] VITALS: BP 98/52
[2021-01-04] MEDS: VITAMIN D 1,000 INTERNATIONAL UNITS TABLET PO SCH (08:25)
[2021-01-04] MEDS: CLOPIDOGREL 75 MG TAB PO SCH (08:25)
[2021-01-04] MEDS: TORSEMIDE 20 MG TAB PO SCH ×2 (08:25→18:38)
[2021-01-04] MEDS: ASPIRIN 81MG ENTERIC TABLET PO SCH (08:26)
[2021-01-04] MEDS: FERROUS SULFATE 325MG TAB PO SCH ×2 (08:26→20:57)
[2021-01-04] MEDS: ATORVASTATIN 20 MG TAB PO SCH (08:26)
[2021-01-04] MEDS: LEVEMIR (INSULIN DETEMIR) 1 UNITS/0.01ML SQ SCH ×2 (08:26→20:57)
[2021-01-04] MEDS: SPIRONOLACTONE 25 MG TAB PO SCH (08:26)
--- NOTE | 2021-01-04 08:36 | REP ---
INDICATION: CHF re-eval. COMPARISON: 01/01/2020 TECHNIQUE: Two views FINDINGS: There is cardiomegaly. The dual chamber bipolar pacemaker device is unchanged. The CHF pattern has improved. Bibasilar opacities are unchanged. IMPRESSION: Improved CHF pattern <Electronically signed by Vahe Griffin > 01/04/21 0832
[2021-01-04] MEDS ORDERED: POTASSIUM CHLORIDE 10 MEQ SR TABLET PO ONE (09:00)
--- NOTE | 2021-01-04 11:25 | IPNPDOC ---
Date Seen The patient was seen on 01/04/21. Progress Note SUBJECTIVE: Neg 13 L fluid since admission. CR improving with PO torsemide, spironolactone. CXR improved despite BNP not much improved. Patient denies chest pain, incr SOB, n/v/d, fevers, chills. OBJECTIVE: PHYSICAL EXAMINATION: VS: Please see below. CONSTITUTIONAL: NAD, sitting up in chair, AAO x 3 EYES: PERRLA, EOM intact HENT, MOUTH: Normocephalic, atraumatic, moist mucous membranes NECK: SUPPLE, no JVD, no lymphadenopathy, no carotid bruit CV: sinus tachycardia. S1S2 normal, no murmurs/rubs/gallops RESPIRATORY: No longer has crackles in lower post lung bases, no rales/rhonchi/wheezes GI: BS positive in 4 quadrants, soft, nontender, nondistended, no rebound or guarding, no organomegaly : Deferred MUSCULOSKELETAL: Normal ROM. No cyanosis, clubbing, swelling, joint deformity, + 2 pitting lower extremity edema b/l- improving slowly INTEGUMENTARY: Intact, no rashes, no lesions, no erythema NEUROLOGIC: Cranial Nerves II-XII are intact, no focal deficits PSYCHIATRIC: Mood and affect are normal LABORATORY DATA: Please see below IMAGING: CXR 01/05/21: There is cardiomegaly. The dual chamber bipolar pacemaker device is unchanged. The CHF pattern has improved. Bibasilar opacities are unchanged. Echocardiogram 01/01/21 (prelim reading): small pericardial effusion, pleural effusion, MR F/u official reading, pending CT chest: CHF pattern with bilateral pleural effusions and four-chamber cardiomegaly. Pacemaker and aortic valve replacement. Mild alveolar edema pattern. Bibasilar atelectatic changes. CXR: Findings described above suggest CHF versus multifocal pneumonia. ASSESSMENT: 70-year-old female with PMH of CAD status post stent placement, aortic valve replacement secondary to AV stenosis, history of hypertension, history of rectal cancer status post rectal surgery, history of kidney cancer status post nephrectomy 10/04/20, CHF (type unknown), ? FADI, bowel incontinence 2/2 to rectal surgery, history of atrial fibrillation not on anticoagulation due to recent GI bleed, hyperlipidemia admitted for acute hypoxic respiratory failure secondary to CHF with exacerbation requiring CPAP, r/o sepsis 2/2 to HCAP/CAP? PLAN: Acute on chronic HFpEF with exacerbation, type unknown with bilateral pleural effusions -Neg 13L since admission, resolved SOB and improving LE edema b/l -CT chest, CXR -BNP 6719-->6412 -Trops now neg -Per obtained records, last echo from [facility] from 11/10/19: EF 55-60%, severe hypokinesis of infero-post wall, no paravalvular or valvular AV regurg. See rest in chart. -New echocardiogram done this admission: official report pending, prelim results above -Not on BB, ACEi at home -Lost IV access on 01/03/21. D/nichole lasix 60 mg IV Q8H and oseguera catheter. Started on torsemide BID. C/w spironolactone, IS Q2H while awake -Nephrology consulted to help with diuresis -Cardiology records in chart Acute kidney injury likely 2/2 to CHF, o/p medications/diuretics -Cr improving slowly to 1.35 -Per records, baseline appears to be normal with last labs seen Cr 1.1 -S/p nephrectomy 09/2020 -Cr improving despite aggressive diuresis -Does not follow with kidney specialist but with urologist -Nephrology following -Daily labs, monitoring while aggressively diuresing Acute on chronic ODIN anemia likely acute on chronic -S/p 2 units PRBC 01/01/21. Today H/H . Baseline H/H from obtained notes. -Occult blood neg -Hx of recent GI bleed 2/2 to [facility] with records from [facility] requested. -has not been on AC this admission at all. -Given dose of Injectafer, ferrous sulfate BID -Daily CBC, TEDs, sequentials Acute hypokalemia likely 2/2 to diuresis -K 3.3 -S/p 30 mEq x 1 -F/u AM labs Bibasilar opacities? on CXR -Procalcitonin neg, WBC wnl, denies cough, shortness of breath -Stopped abx and will keep off for now -If develops worsening s/s of respiratory distress, restart CAD s/p stent placement / hx of severe s/p TAVR / PM placement -Trop now normal, never suspected ACS as caus of elevation -Cardiology records in chart -C/w ASA, statin, Plavix, diuretics Hx of rectal cancer s/p rectal surgery 09/2020 -Now has bowel incontinence at times from this -Follow up o/p HLD -Statin ? FADI -Stated to have been told she had this but has not been officially dx with sleep study Kidney cancer s/p chemotherapy, radiation and right nephrectomy 09/2020 -Follows with oncologist in [facility] Hx of atrial fibrillation, chronic -Currently ventricularly paced on ECG, HR stable -Not on BB or chronic AC due to recent GI bleed DM type II -BS controlled -Insulin glargine BID, ISS, FS AC/HS -Consistent carb diet DVT px -Teds, SCD. Resolved: Acute hypoxic respiratory failure 2/2 to acute on chronic HFpEF with exacerbation, pleural effusions Elevated troponins likely 2/2 to ischemic demand, renal dysfunction, acute on chronic HFpEF DISPOSITION: Improving slowly. Nephrology following. Doing well with diuresis and will likely continue to benefit from 1-2 more days of regimen. C/w Cleared by PT/OT to return home when medically improved. VS, I&O, 24H, Fishbone Vital Signs/I&O Vital Signs Date Time Temp Pulse Resp B/P (MAP) Pulse Ox O2 Delivery O2 Flow Rate FiO2 01/04/21 08:00 97.6 95 20 98/52 (67) 83 Room Air 01/01/21 12:00 2.0 12/31/20 20:28 45 I&O- Last 24 Hours up to 6 AM 01/04/21 06:00 Intake Total 1090 ml Output Total 900 ml Balance 190 ml Laboratory Data 24H LABS Laboratory Tests 2 01/03/21 12:34: Bedside Glucose (Misc Panel) 137H 01/03/21 17:36: Bedside Glucose (Misc Panel) 191H 01/03/21 20:31: Bedside Glucose (Misc Panel) 145H 01/04/21 04:50: Nucleated Red Blood Cells % (auto) 0.0, Anion Gap 5L, Glomerular Filtration Rate 41.4L, Calcium Level 8.5L, Total Bilirubin 0.7, Aspartate Amino Transf (AST/SGOT) 11, Alanine Aminotransferase (ALT/SGPT) 20, Alkaline Phosphatase 95, SB-Col-E-Type Natriuretic Peptide 6412H, Total Protein 6.1L, Albumin 2.8L, Albumin/Globulin Ratio 0.8L CBC/BMP Laboratory Tests 01/04/21 04:50 Microbiology Microbiology 01/01/21 Stool Occult Blood ([facility]) - Final, Complete 12/31/20 Blood Culture - Preliminary, Resulted No Growth after 72 hours. All specime... 12/31/20 Respiratory Virus Panel (PCR) ([facility]) - Final, Complete 12/31/20 Blood Culture - Preliminary, Resulted No Growth after 72 hours. All specime... Savanah Joyner MD January 04, 2021 11:24
[2021-01-04 16:00] VITALS: BP 114/59
[2021-01-04 20:00] VITALS: BP 126/59
[2021-01-05 04:00] VITALS: BP 116/58
[2021-01-05 05:07] LABS: HEMATOCRIT 37.1 % (36.0-47.0); HEMOGLOBIN 10.9 g/dl (12.0-15.5); MEAN CORPUSCULAR HEMOGLOBIN 25.2 pg (27.0-33.0); MEAN CORPUSCULAR HGB CONC 29.4 g/dl (32.0-36.5); MEAN CORPUSCULAR VOLUME 85.7 fl (80.0-96.0); PLATELET COUNT, AUTOMATED 300 10^3/uL (150-450); RED BLOOD COUNT 4.33 10^6/uL (4.00-5.40); WHITE BLOOD COUNT 6.5 10^3/uL (4.0-10.0)
[2021-01-05 05:36] LABS: ALBUMIN 2.9 GM/DL (3.2-5.2); BILIRUBIN,TOTAL 0.7 MG/DL (0.2-1.0); CALCIUM LEVEL 8.3 MG/DL (8.8-10.2); CREATININE FOR GFR 1.37 MG/DL (0.55-1.30); GLOMERULAR FILTRATION RATE 40.7 (>45); POTASSIUM SERUM 3.4 MEQ/L (3.5-5.1); TOTAL PROTEIN 6.5 GM/DL (6.4-8.2)
[2021-01-05] MEDS: HumaLOG INSULIN (NovoLOG) PER UNIT SC SCH ×2 (07:30→12:00)
[2021-01-05 08:00] VITALS: BP 107/55
[2021-01-05] MEDS: LEVEMIR (INSULIN DETEMIR) 1 UNITS/0.01ML SQ SCH (08:16)
[2021-01-05] MEDS: ASPIRIN 81MG ENTERIC TABLET PO SCH (08:19)
[2021-01-05] MEDS: SPIRONOLACTONE 25 MG TAB PO SCH (08:19)
[2021-01-05] MEDS: ATORVASTATIN 20 MG TAB PO SCH (08:19)
[2021-01-05] MEDS: VITAMIN D 1,000 INTERNATIONAL UNITS TABLET PO SCH (08:19)
[2021-01-05] MEDS: CLOPIDOGREL 75 MG TAB PO SCH (08:19)
[2021-01-05] MEDS: FERROUS SULFATE 325MG TAB PO SCH (08:19)
[2021-01-05] MEDS: TORSEMIDE 20 MG TAB PO SCH (08:19)
[2021-01-05] MEDS ORDERED: POTASSIUM CHLORIDE 10 MEQ SR TABLET PO ONE ×2 (09:00→12:00)
[2021-01-05] MEDS ORDERED: ALDA25TA2 PO (09:18)
[2021-01-05] MEDS ORDERED: TORS20TA2 PO (09:18)
--- NOTE | 2021-01-05 11:50 | DS.PDOC ---
Discharge Summary General Date of Admission December 31, 2020 at 16:47 Date of Discharge 01/05/21 Attending Physician: Savanah Joyner MD Discharge Summary HISTORY OF PRESENT ILLNESS: Patient is a 70-year-old female with PMH of CAD status post stent placement, DM type II, aortic valve replacement secondary to AV stenosis, history of hypertension, history of rectal cancer status post rectal surgery, history of kidney cancer status post nephrectomy 10/04/20, CHF (type unknown), ? FADI, bowel incontinence 2/2 to rectal surgery, history of atrial fibrillation not on anticoagulation due to recent GI bleed, hyperlipidemia who presented to [facility] emergency room with the chief complaint of increased shortness of breath suddenly today. 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 She complains of worsening lower extremity edema over the past several weeks for which her home Lasix was increased from 40 mg to 60 mg last week by her primary care provider. She's also been experiencing nocturnal dyspnea over the past several weeks along with the lower extremity swelling and worsening short of breath. She complains today of lightheadedness, dizziness, diaphoresis along with Herceptin onset of shortness of breath. She denies a cough, chest pain, fevers, chills, recent illnesses. She has a hospitalization from September of this year where she underwent right nephrectomy and rectal surgery. She follows with multiple specialists across [place] and [facility] including her primary care provider who is in [place], [place], pododermatologist in [place], [place], her urologist in [place], [place], CT surgeons in [place], [place]. She states she had heart failure secondary to chemotherapy and radiation which treated her kidney cancer. She has an unknown baseline for her creatinine. She does not follow with a associate brand manager as outpatient. Due to worsening shortness of breath, the patient was brought to the emergency room for further evaluation. In route, EMS placed on CPAP due to increased lower extremity swelling and increased shortness of breath. Upon arrival to the emergency room, the patient was in respiratory distress, respiratory rate 3033, pulse [id number], temperature 95.5, blood pressure stable at 140/72. Chest x-ray showed CHF type pattern with questionable multifocal pneumonia. Lactic acid elevated at 4.9. The patient was given ceftriaxone and a dose of doxycycline for questionable sepsis 2/2 to PNA. The patient had elevated BNP 6719, pH on ABG 7.359, CO2 normal, PaO2 in the 70s. The patient was attempted to be taken off of CPAP but this did not help her respiratory distress . She was given 120 mg of IV Lasix with no urinary output. Martell catheter was placed. Case was discussed with both pulmonology and nephrology. The patient was ultimately admitted for acute hypoxic respiratory failure secondary to congestive heart failure with exacerbation requiring CPAP and hospitalization, r/o sepsis 2/2 to HCAP/CAP? HOSPITAL COURSE: Acute on chronic HFpEF with exacerbation and bilateral pleural effusions gradually improved with aggressive diuresis, nephrology was consulted to help with this and associated ROXANNA. She was gradually transitioned to torsemide 40 mg PO BID and spironolactone. By 01/05/21 patient was -14L with overal net neg. SOB had resolved and swelling had significantly improved, with LLE always being more swollen than R. Per obtained records, last echo from [facility] from 11/10/19: EF 55- 60%, severe hypokinesis of infero-post wall, no paravalvular or valvular AV regurg- New echocardiogram 01/01/21 (prelim reading): small pericardial effusion, pleural effusion, MR with official reading still pending. Her acute kidney injury likely 2/2 to CHF, o/p medications/diuretics. This improved gradually to Cr 1.37. She does not follow with kidney specialist but with urologist. she was seen and followed by our nephrology team and recommendations are for her to continue after discharge. She was treated for acute on chronic ODIN anemia land transfused 2 units PRBC 01/01/21. Today H/H 10.9/37- baseline H/H 11 from obtained notes. Occult blood neg but has hx of recent GI bleed 2/2 to eliquis. She was also given dose of Injectafer and started on ferrous sulfate BID. There was a question of bibasilar opacities? on CXR; however, procalcitonin neg, WBC wnl, denies cough, shortness of breath. Abx were not continued. Other chronic issues remained stable. On 01/05/21 patient was discharged and instructed to call PCP after weekend to make o/p follow up appointment, same for nephrology. PAST MEDICAL HISTORY: CAD status post stent placement, aortic valve replacement secondary to AV stenosis, history of hypertension, history of rectal cancer status post rectal surgery, history of kidney cancer status post nephrectomy 10/04/20, CHF (type unknown), history of atrial fibrillation not on anticoagulation due to recent GI bleed, hyperlipidemia, ? FADI, bowel incontinence 2/2 to rectal surgery, DM type II PAST SURGICAL HISTORY: Pacemaker placement 10/2019 Cardiac stent placement x 3 Right nephrectomy 10/04/2020 AV valve replacement Rectal surgery to 10/04/2020 FAMILY HISTORY: Father: CAD, bladder/colon cancer. at 80 y/o Mother: CAD. at 70 y/o. SOCIAL HISTORY: Prior smoker 1 pack per day for 10 years. Quit in 1982. Denies alcohol or drug use. Follows with multiple specialists including her primary care provider in [place], [place]. Cardiology, urology, CT surgery. Patient is a full code. She is DISCHARGE MEDICATIONS: Please see below PHYSICAL EXAMINATION: VS: Please see below. CONSTITUTIONAL: NAD, sitting up in chair, AAO x 3 EYES: PERRLA, EOM intact HENT, MOUTH: Normocephalic, atraumatic, moist mucous membranes NECK: SUPPLE, no JVD, no lymphadenopathy, no carotid bruit CV: sinus tachycardia. S1S2 normal, no murmurs/rubs/gallops RESPIRATORY: No longer has crackles in lower post lung bases, no rales/rhonchi/wheezes GI: BS positive in 4 quadrants, soft, nontender, nondistended, no rebound or guarding, no organomegaly : Deferred MUSCULOSKELETAL: Normal ROM. No cyanosis, clubbing, swelling, joint deformity, + 2 pitting lower extremity edema b/l L>R INTEGUMENTARY: Intact, no rashes, no lesions, no erythema NEUROLOGIC: Cranial Nerves II-XII are intact, no focal deficits PSYCHIATRIC: Mood and affect are normal LABORATORY DATA: Please see below IMAGING: CXR 01/05/21: There is cardiomegaly. The dual chamber bipolar pacemaker device is unchanged. The CHF pattern has improved. Bibasilar opacities are unchanged. Echocardiogram 01/01/21 (prelim reading): small pericardial effusion, pleural effusion, MR F/u official reading, pending CT chest: CHF pattern with bilateral pleural effusions and four-chamber cardiomegaly. Pacemaker and aortic valve replacement. Mild alveolar edema pattern. Bibasilar atelectatic changes. CXR: Findings described above suggest CHF versus multifocal pneumonia. ASSESSMENT: 70-year-old female with PMH of CAD status post stent placement, aortic valve replacement secondary to AV stenosis, history of hypertension, history of rectal cancer status post rectal surgery, history of kidney cancer status post nephrectomy 10/04/20, CHF (type unknown), ? FADI, bowel incontinence 2/2 to rectal surgery, history of atrial fibrillation not on anticoagulation due to recent GI bleed, hyperlipidemia admitted for acute hypoxic respiratory failure secondary to CHF with exacerbation requiring CPAP, r/o sepsis 2/2 to HCAP/CAP? PLAN: Acute on chronic HFpEF with exacerbation, type unknown with bilateral pleural effusions -Saturating well on RA -Neg 14L since admission, resolved SOB and improving LE edema b/l -CT chest, CXR above -BNP improved -Trops now neg -Per obtained records, last echo from [facility] from 11[facility]10[facility]: EF 55-60%, severe hypokinesis of infero-post wall, no paravalvular or valvular AV regurg. See rest in chart. -New echocardiogram done this admission: official report pending, prelim results above -Not on BB, ACEi at home -Recommended to c/w torsemide BID, spironolactone after d/c -F/u with o/p cardiology Acute kidney injury likely 2/2 to CHF, o/p medications/diuretics -Cr improving slowly to 1.37 -Per records, baseline appears to be normal with last labs seen Cr 1.1 -S/p nephrectomy 09/2020 -Cr improving despite aggressive diuresis -Does not follow with kidney specialist but with urologist -Nephrology following her and recommended her to f/u after discharge, recommends close monitoring of Cr as o/p while on diuretics Acute on chronic ODIN anemia -S/p 2 units PRBC 01/01/21. Today H/H 10.9/37. Baseline H/H from obtained notes. -Occult blood neg -Hx of recent GI bleed 2/2 to eliquis with records from [facility] requested. -has not been on AC this admission at all. -Given dose of Injectafer, started on ferrous sulfate BID this admission Acute hypokalemia likely 2/2 to diuresis -Given 40 mEq today -f/u with o/p labs Bibasilar opacities? on CXR -Procalcitonin neg, WBC wnl, denies cough, shortness of breath -Stopped abx and will keep off for now CAD s/p stent placement / hx of severe s/p TAVR / PM placement -Trop now normal, never suspected ACS as caus of elevation -Cardiology records in chart -C/w ASA, statin, Plavix, diuretics Hx of rectal cancer s/p rectal surgery 09/2020 -Now has bowel incontinence at times from this -Follow up o/p HLD -Statin ? FADI -Stated to have been told she had this but has not been officially dx with sleep study Kidney cancer s/p chemotherapy, radiation and right nephrectomy 09/2020 -Follows with oncologist in [facility] Hx of atrial fibrillation, chronic -Currently ventricularly paced on ECG, HR stable -Not on BB or chronic AC due to recent GI bleed DM type II -BS controlled -Insulin glargine BID Resolved: Acute hypoxic respiratory failure 2/2 to acute on chronic HFpEF with exacerbation, pleural effusions Elevated troponins likely 2/2 to ischemic demand, renal dysfunction, acute on chronic HFpEF DISPOSITION: D/c today to f/u with both PCP and nephrology as o/p TIME SPENT ON DISCHARGE: 35 minutes. Vital Signs/I&Os Vital Signs Date Time Temp Pulse Resp B/P (MAP) Pulse Ox O2 Delivery O2 Flow Rate FiO2 01/05/21 08:00 97.1 82 18 107/55 (72) 95 Room Air 01/01/21 12:00 2.0 12/31/20 20:28 45 I&O- Last 24 Hours up to 6 AM 01/05/21 06:00 Intake Total 420 ml Output Total 0 ml Balance 420 ml Laboratory Data Labs 24H Laboratory Tests 2 01/04/21 12:26: Bedside Glucose (Misc Panel) 99 01/04/21 16:58: Bedside Glucose (Misc Panel) 143H 01/04/21 20:30: Bedside Glucose (Misc Panel) 144H 01/05/21 04:35: Nucleated Red Blood Cells % (auto) 0.0, Anion Gap 3L, Glomerular Filtration Rate 40.7L, Calcium Level 8.3L, Total Bilirubin 0.7, Aspartate Amino Transf (AST/SGOT) 14, Alanine Aminotransferase (ALT/SGPT) 17, Alkaline Phosphatase 93, Total Protein 6.5, Albumin 2.9L, Albumin/Globulin Ratio 0.8L CBC/BMP Laboratory Tests 01/05/21 04:35 FSBS Laboratory Tests Test 01/04/21 12:26 01/04/21 16:58 01/04/21 20:30 Range/Units Bedside Glucose (Misc Panel) 99 143 144 80-115 MG/DL Microbiology Microbiology 01/01/21 Stool Occult Blood ([facility]) - Final, Complete 12/31/20 Blood Culture - Preliminary, Resulted No Growth after 72 hours. All specime... 12/31/20 Respiratory Virus Panel (PCR) ([facility]) - Final, Complete 12/31/20 Blood Culture - Preliminary, Resulted No Growth after 72 hours. All specime... Discharge Medications Scheduled Aspirin (Aspirin) 81 Mg Tab.chew, 81 MG PO DAILY for pain, (Reported) Atorvastatin Calcium (Atorvastatin Calcium) 20 Mg Tablet, 20 MG PO DAILY, (Reported) Cholecalciferol (Vitamin D3) (Vitamin D3) 1,000 Unit Tablet, 1,000 UNITS PO DAILY, (Reported) Clopidogrel Bisulfate (Clopidogrel) 75 Mg Tablet, 75 MG PO DAILY, (Reported) Insulin Glargine,Hum.rec.anlog (Lantus Solostar) 100 Unit/1 Ml Insuln.pen, 16 UNITS SQ BID, (Reported) Spironolactone (Aldactone) 25 Mg Tablet, 25 MG PO QAM Torsemide (Torsemide) 20 Mg Tablet, 40 MG PO BID@09,17 Allergies Coded Allergies: Contrast Media (Verified Allergy, Mild, ITCHING/AGITATION/SKIN CRAWLING, 12/31/20) Savanah Joyner MD January 05, 2021 11:50
[2021-01-05] MEDS ORDERED: FERR325T3 PO (12:01)
--- NOTE | 2021-01-05 19:05 | IPN ---
PROGRESS NOTE DATE: 01/04/2021 Mrs. Dick is seen this morning on her bedside. She is feeling much better and reports improved dyspnea and improved edema since admission with aggressive diuresis. She was admitted from ophthalmology office due to hypoxemia and decompensated congestive heart failure. She has known history of right-sided nephrectomy due to renal cell carcinoma in the past and also congestive heart failure. She has multiple other chronic medical problems, including a history of rectal cancer. At present, she is very well diuresed over last few days, and her volume status has improved significantly. She is able to get up and walk to the bathroom with the help of a walker. She denies any nausea or vomiting. PHYSICAL EXAMINATION: Temperature 97.6 degrees Fahrenheit, heart rate 95 per minute, respiratory rate 20 per minute, blood pressure 98/52 mmHg, and oxygen saturation 83%-94% on room air. Intake and output records from last 24 hours show a negative fluid balance of about 1200 mL. In total since admission she is about 8.8 liters negative. Head is atraumatic. Neck supple, and jugular venous distention (JVD) about 6-7 cm above sternal angle. Heart sounds are without a pericardial friction rub. She has a systolic murmur, grade 2/6. Lungs with bibasilar rales. Abdomen soft and nontender, and bowel sounds are normal. Extremities with chronic edema and pitting. No cyanosis or clubbing. Neurologically she is awake, alert, and oriented times three. Today's labs show sodium 142, potassium 3.4, CO2 of 32, BUN 30, and creatinine 1.35. Calcium 8.5. A BNP level is 6412. Hemoglobin is 10.3 and hematocrit 34.6. PROBLEMS: 1. Congestive heart failure. Volume status has improved significantly. She had a repeat chest x-ray done today, which showed significant improvement. Her intravenous Lasix has been stopped, and she is now on oral torsemide. We still want her to be in negative fluid balance in view of peripheral edema. 2. Hypotension. Blood pressure is somewhat low; however, she is not on any medication other than diuretics. We will need to watch her blood pressure closely. 3. Chronic kidney disease. Patient has prior right-sided nephrectomy with solitary left functioning kidney. It remains to be seen at what level her kidney function reaches. So far she has improvement in her kidney function since admission. 4. Hypokalemia. This is related to aggressive diuresis, and she has already received some potassium supplement. She is also now on spironolactone 25 mg daily. Electrolytes should be repeated again tomorrow.
--- NOTE | 2021-01-05 19:06 | IPN ---
PROGRESS NOTE DATE: 01/05/2021 SUBJECTIVE: Mrs. Dick is seen this morning on her bedside. She is feeling better, however, still has some leg edema. Her shortness of breath has improved and oxygen saturation is 95% on room air. She has been diuresed aggressively since admission. PHYSICAL EXAMINATION: VITALS: Temperature 97 degrees Fahrenheit, heart rate 82 per minute, respiratory rate 18 per minute, blood pressure 107/55 mmHg and oxygen saturation 95% on room air. HEENT: Head is atraumatic. Neck is supple and JVD could not be determined. LUNGS: With few basilar rales. HEART: Sounds are regular and systolic murmur 2/6 is audible. ABDOMEN: Soft and nontender. EXTREMITIES: Without any cyanosis or clubbing. She has chronic bilateral lower extremity edema with pitting. LABORATORY STUDIES: Today's labs show WBC 6.5, hemoglobin 10.9 and hematocrit 37. Sodium 142, potassium 3.4, CO2 33, BUN 30, creatinine 1.37, glucose 74 and calcium 8.3. PROBLEMS: 1. Acute on chronic congestive heart failure: Patient was quietly decompensated on admission and has improved significantly. She has been diuresed aggressively and has been in negative fluid balance of just over 8 liters since admission. Now she is on oral Torsemide and Spironolactone and will continue with the same as an outpatient. She will follow-up with our office next week. 2. Acute kidney injury superimposed on chronic kidney disease: She has prior right nephrectomy with solitary functioning left kidney. Her acute kidney injury was related to decompensated congestive heart failure and kidney function seems to be leveled off with a GFR of about 40. She wishes to follow-up with our office as an outpatient. 3. Hypokalemia: Related to diuretic use. No change since yesterday despite some supplement. I will give her an additional dose of potassium chloride 40 mEq today. Now she is also on Spironolactone 25 mg daily, which is continued and her electrolytes will be monitored as an outpatient in one week when she comes for her follow-up in the clinic. 4. Anemia: Her anemia is stable at this point and does not need any intervention. DISPOSITION: Patient is going to be discharged today. She is still not fully recovered from her hypervolemia. She will continue with current diuretics and follow-up as an outpatient.
--- NOTE | 2021-01-06 08:45 | ECHO ---
DATE OF PROCEDURE: 01/01/2021 Age: 70 Gender: Female REFERRING PHYSICIAN: Savanah Joyner M.D. PATIENT LOCATION: Room 3222 REASON FOR STUDY: Congestive heart failure. 2D MEASUREMENTS: IVS 1.1 cm LV 4.1 cm LVPW 1.2 cm LA 4.7 cm Aorta 2.6 cm IVC 2.0 cm DOPPLER MEASUREMENT Peak velocity across the aortic valve 1.5 m/s Peak velocity across the LVOT 0.87 m/s Peak gradient across the aortic valve 8 mmHg Mean gradient across the aortic valve 5 mmHg Maximum tricuspid valve velocity 3.1 m/s 2D COMMENTS: 1. Normal left ventricular size, wall thickness, but with a depressed global left ventricular systolic function. The posterior wall and the apex appear to be akinetic. The estimated global left ventricular systolic ejection fraction is 30%. 2. Mildly enlarged left atrium. Subjectively, the right atrium appeared to be mildly enlarged. The right ventricle appeared to be normal in size in limited views. 3. The atrial septum appeared to be normal without evidence of defect or shunt. 4. Normal aortic root. 5. A small pericardial effusion was noted, no evidence of cardiac tamponade. Significant bilateral pleural effusion was noted. 6. Bioprosthetic aortic valve noted with normal functioning, TAVR. Moderately calcified mitral annulus, leaflet excursion appeared to be normal. Could not rule out prior mitral valve repair. Normal tricuspid valve and pulmonic valve. The proximal pulmonary artery branches were not well visualized. 7. The inferior vena cava is dilated. Central venous pressure is most likely elevated. DOPPLER: Detects severe mitral regurgitation, moderate tricuspid regurgitation, trace pulmonic regurgitation. The calculated pulmonary artery systolic pressure varies between 40-50 mmHg. Assessment of the left ventricular diastolic function was limited. IMPRESSION: 1. Moderately severe global left ventricular systolic dysfunction with regional wall motion abnormalities consistent with probably prior history of coronary artery disease. Assessment of the left ventricular diastolic function was limited. 2. Bioprosthetic aortic valve, TAVR with normal functioning. 3. Moderately to severely calcified mitral annulus with severe mitral regurgitation. 4. Moderate tricuspid regurgitation with moderate pulmonary hypertension. 5. A small pericardial effusion was noted, no evidence of cardiac tamponade. Bilateral pleural effusion was noted. 6. There are features of elevated central venous pressure, the inferior vena cava was mildly enlarged. 7. Pacemaker/AICD wire artifacts noted. MTDD
== END 2021-01-05 12:16 | disposition home or self-care (01) | DRG 291 ==
LOC: EDBD 14:12 → M ED 14:12 → M ED INP 16:47 → ENRESERV 20:16 → M PCU 21:52
PROVIDERS: ADMIT Internal Medicine; ATTEND Internal Medicine
PROC: 30233N1 Transfusion of Nonautologous Red Blood Cells into Peripheral Vein, Percutaneous Approach (ICD-10-PCS; principal; 2021-01-01)
DX: I13.0 Hypertensive heart and chronic kidney disease with heart failure and stage 1 through stage 4 chronic kidney disease, or unspecified chronic kidney disease (principal); J18.9 Pneumonia, unspecified organism; J96.01 Acute respiratory failure with hypoxia; I50.33 Acute on chronic diastolic (congestive) heart failure; N17.9 Acute kidney failure, unspecified; I48.20 Chronic atrial fibrillation, unspecified; I31.3 Pericardial effusion (noninflammatory); I24.8 Other forms of acute ischemic heart disease; E87.2 Acidosis; N18.9 Chronic kidney disease, unspecified; I25.10 Atherosclerotic heart disease of native coronary artery without angina pectoris; R15.9 Full incontinence of feces; D50.9 Iron deficiency anemia, unspecified; E11.22 Type 2 diabetes mellitus with diabetic chronic kidney disease; E87.6 Hypokalemia; E78.5 Hyperlipidemia, unspecified; E83.42 Hypomagnesemia; G47.33 Obstructive sleep apnea (adult) (pediatric); Z85.528 Personal history of other malignant neoplasm of kidney; Z90.5 Acquired absence of kidney; Z85.048 Personal history of other malignant neoplasm of rectum, rectosigmoid junction, and anus; Z92.21 Personal history of antineoplastic chemotherapy; Z92.3 Personal history of irradiation; Z95.5 Presence of coronary angioplasty implant and graft; Z95.2 Presence of prosthetic heart valve; Z95.0 Presence of cardiac pacemaker; Z87.891 Personal history of nicotine dependence; Z79.02 Long term (current) use of antithrombotics/antiplatelets; Z79.899 Other long term (current) drug therapy; Z91.041 Radiographic dye allergy status; Z79.4 Long term (current) use of insulin

== ENCOUNTER → 2021-04-15 | Outpatient (REF) | payer OTHER ==
[~2021-04-15] MED LIST: ALDA25TA2 PO; ASPI81CH33 PO; ATOR1TAB21 PO; CLOP75TA2 PO; D31000TA2 PO; FERR325T3 PO; FURO40TA2 PO; LANTINJ4 SQ; TORS20TA2 PO
== END ==
LOC: M LAB REF 17:10
PROVIDERS: ATTEND Internal Medicine Nephrology
DX: E83.42 Hypomagnesemia (principal)

== ENCOUNTER → 2021-07-08 | Outpatient (REF) | payer OTHER | LOC: M LAB REF 17:02 | PROVIDERS: ATTEND Internal Medicine Nephrology | DX: E83.42 Hypomagnesemia (principal) ==

== ENCOUNTER → 2022-11-09 | Outpatient (REF) | payer OTHER ==
[~2022-11-09] MED LIST changes: -D31000TA2 PO; +VITA100093 PO
== END ==
LOC: M LAB REF 17:10
PROVIDERS: ATTEND Internal Medicine Nephrology
DX: N18.32 Chronic kidney disease, stage 3b (principal); E11.65 Type 2 diabetes mellitus with hyperglycemia

== ENCOUNTER → 2024-01-28 | Outpatient (REF) | payer OTHER ==
[2024-01-28 18:37] LABS: CREATININE,RANDOM URINE 40.7 MG/DL; TOTAL PROTEIN,RANDOM URINE < 6.0 MG/DL (0.0-14.0)
== END ==
LOC: M LAB REF 17:06
PROVIDERS: ATTEND Internal Medicine Nephrology
DX: E11.65 Type 2 diabetes mellitus with hyperglycemia (principal)

== ENCOUNTER → 2024-04-21 | Outpatient (REF) | payer OTHER ==
[2024-04-21 18:12] LABS: CREATININE,RANDOM URINE 28.8 MG/DL
[2024-04-21 18:15] LABS: TOTAL PROTEIN,RANDOM URINE < 6.0 MG/DL (0.0-14.0)
== END ==
LOC: M LAB REF 17:14
PROVIDERS: ATTEND Internal Medicine Nephrology
DX: N18.32 Chronic kidney disease, stage 3b (principal)